=== PATIENT | male | born 1955 | race Caucasian/White ===

== ENCOUNTER 2020-04-20 11:50 | Inpatient (IN) | payer MEDICARE, OTHER ==
[~2020-04-20] VITALS: Ht 177.8 cm; Wt 104.3 kg
[2020-04-20 11:44] VITALS: BP 140/99
--- NOTE | 2020-04-20 11:51 | NUR ---
ED Nurse Note: pt. brought in by ra Gill from the [facility]. per pt. he cannot walk and per pt. he has pain on his muscles when he tries to walk. pt. is aaox4. no s/ s of resp distress noted at this time
--- NOTE | 2020-04-20 12:07 | Emergency Room Report ---
History of Present Illness General Chief Complaint: Pain Source: Patient (Ced Hsu MD) Present Illness HPI Disclaimer: Please note that this report is being documented using [employer] technology. This can lead to erroneous entry secondary to incorrect interpretation by the dictating instrument. HPI: 64-year-old male with a history of seizure disorder on Keppra, hypertension, CHF presents for evaluation of fatigue and myalgias. Patient arrives by EMS. Called when bystander found him sleeping on the floor. He was complaining of pain in his arms and legs. Describes it as soreness. Nonradiating. Denies chest pain, palpitations. Denies cough. Reports mild shortness of breath. Denies fever, chills. Reports nasal congestion but denies sore throat, headaches, nausea, vomiting or diarrhea. States he is compliant with his furosemide, Keppra. Receives his care at the [facility]. No testing for COVID-19. Denies sick contacts. Symptoms began this morning and went to bed in his usual state of health. Denies recent seizures. Also reports history of hypokalemia for which he takes potassium supplements. States he has been compliant with his medication regimen. PMH: Seizure disorder, CHF, brain cancer in remission PSH: Denied Allergies: Denied Social Hx: Current smoker, occasional alcohol use (Ced Hsu MD) Allergies: Coded Allergies: No Known Allergies (Unverified , 04/20/20) COVID-19 Screening Contact w/high risk pt: No Experienced COVID-19 symptoms?: No COVID-19 Testing performed PHARMACEUTICAL SALES: No (Ced Hsu MD) Nursing Documentation-PMH Hx Cancer: Yes - BRAIN CA (Ced Hsu MD) Review of Systems All Other Systems: negative except mentioned in HPI (Ced Hsu MD) Physical Exam Vital Signs Date Time Temp Pulse Resp B/P (MAP) Pulse Ox O2 Delivery O2 Flow Rate FiO2 04/20/20 11:44 98.4 04/20/20 11:44 99 18 140/99 98 Room Air General: Awake and alert, no acute distress, appears fatigued HEENT: NC/AT. EOMI. nasal congestion. No pharyngeal edema or exudate. Cardiovascular: RRR. S1 and S2 normal. No murmur appreciated Resp: Normal work of breathing. No cough, wheezing or crackles appreciated Abdomen: Abdomen is soft, nondistended. Nontender Skin: Intact. No abrasions, laceration or rash over the exposed skin. Bruise over the left chest. Nontender. MSK: Normal tone and bulk. Moving all extremities. No obvious deformity. Neuro: Awake and alert. Mentating appropriately. Mildly tremulous. (Ced Hsu MD) Medical Decision Making Diagnostic Impression: Primary Impression: Myalgia Additional Impressions: Rhabdomyolysis Lung mass ER Course 64-year-old male presents for evaluation of myalgias and fatigue. Differential includes not limited to viral syndrome, COVID-19 infection, dehydration, electrolyte abnormality, renal insufficiency, myositis, rhabdo myelitis among others. EKG nonischemic. Chest x-ray shows no infiltrate. Radiology concern for right upper lobe mass. Labs show elevated CK, creatinine and BUN consistent with acute renal injury and mild myositis/rhabdo myelitis. Likely secondary to viral syndrome. Patient denies other symptoms at this time aside from fatigue and muscle aches. Continuing IV fluids. Urinalysis pending. Will arrange for admission. Laboratory Tests Test 04/20/20 12:00 White Blood Count 10.6 K/UL (4.8-10.8) Red Blood Count 5.02 M/UL (4.70-6.10) Hemoglobin 15.7 G/DL (14.2-18.0) Hematocrit 45.6 % (42.0-52.0) Mean Corpuscular Volume 91 FL (80-99) Mean Corpuscular Hemoglobin 31.2 PG (27.0-31.0) H Mean Corpuscular Hemoglobin Concent 34.4 G/DL (32.0-36.0) Red Cell Distribution Width 12.1 % (11.6-14.8) Platelet Count 218 K/UL (150-450) Mean Platelet Volume 9.3 FL (6.5-10.1) Neutrophils (%) (Auto) 77.6 % (45.0-75.0) H Lymphocytes (%) (Auto) 8.3 % (20.0-45.0) L Monocytes (%) (Auto) 9.3 % (1.0-10.0) Eosinophils (%) (Auto) 2.5 % (0.0-3.0) Basophils (%) (Auto) 2.3 % (0.0-2.0) H Sodium Level 134 MMOL/L (136-145) L Potassium Level 3.7 MMOL/L (3.5-5.1) Chloride Level 94 MMOL/L (98-107) L Carbon Dioxide Level 29 MMOL/L (21-32) Anion Gap 11 mmol/L (5-15) Blood Urea Nitrogen 58 mg/dL (7-18) H Creatinine 1.6 MG/DL (0.55-1.30) H Estimated Glomerular Filtration Rate 43.7 mL/min (>60) Glucose Level 110 MG/DL (74-106) H Calcium Level 9.5 MG/DL (8.5-10.1) Total Bilirubin 1.0 MG/DL (0.2-1.0) Aspartate Amino Transferase (AST) 131 U/L (15-37) H Alanine Aminotransferase (ALT) 68 U/L (12-78) Alkaline Phosphatase 102 U/L (46-116) Total Creatine Kinase 1762 U/L (26-308) H Troponin I 0.000 ng/mL (0.000-0.056) Pro-B-Type Natriuretic Peptide Pending Total Protein 7.9 G/DL (6.4-8.2) Albumin 3.1 G/DL (3.4-5.0) L Globulin 4.8 g/dL Albumin/Globulin Ratio 0.6 (1.0-2.7) L Serum Alcohol < 3 mg/dL (Ced Hsu MD) ER Course Patient was endorsed to me by Dr. Hsu. See Dr. Hsu's notes for full history and physical. Previous laboratory testing showed some rhabdomyolysis. Chest x-ray read by radiology showed lung lesion. Patient was discussed with who agreed with admission. Labs Test 04/20/20 12:00 04/20/20 16:00 White Blood Count 10.6 K/UL (4.8-10.8) Red Blood Count 5.02 M/UL (4.70-6.10) Hemoglobin 15.7 G/DL (14.2-18.0) Hematocrit 45.6 % (42.0-52.0) Mean Corpuscular Volume 91 FL (80-99) Mean Corpuscular Hemoglobin 31.2 PG (27.0-31.0) Mean Corpuscular Hemoglobin Concent 34.4 G/DL (32.0-36.0) Red Cell Distribution Width 12.1 % (11.6-14.8) Platelet Count 218 K/UL (150-450) Mean Platelet Volume 9.3 FL (6.5-10.1) Neutrophils (%) (Auto) 77.6 % (45.0-75.0) Lymphocytes (%) (Auto) 8.3 % (20.0-45.0) Monocytes (%) (Auto) 9.3 % (1.0-10.0) Eosinophils (%) (Auto) 2.5 % (0.0-3.0) Basophils (%) (Auto) 2.3 % (0.0-2.0) Sodium Level 134 MMOL/L (136-145) Potassium Level 3.7 MMOL/L (3.5-5.1) Chloride Level 94 MMOL/L (98-107) Carbon Dioxide Level 29 MMOL/L (21-32) Anion Gap 11 mmol/L (5-15) Blood Urea Nitrogen 58 mg/dL (7-18) Creatinine 1.6 MG/DL (0.55-1.30) Estimat Glomerular Filtration Rate 43.7 mL/min (>60) Glucose Level 110 MG/DL (74-106) Calcium Level 9.5 MG/DL (8.5-10.1) Total Bilirubin 1.0 MG/DL (0.2-1.0) Aspartate Amino Transf (AST/SGOT) 131 U/L (15-37) Alanine Aminotransferase (ALT/SGPT) 68 U/L (12-78) Alkaline Phosphatase 102 U/L (46-116) Total Creatine Kinase 1762 U/L (26-308) Troponin I 0.000 ng/mL (0.000-0.056) Total Protein 7.9 G/DL (6.4-8.2) Albumin 3.1 G/DL (3.4-5.0) Globulin 4.8 g/dL Albumin/Globulin Ratio 0.6 (1.0-2.7) Serum Alcohol < 3 mg/dL Urine Color Yellow Urine Appearance Slightly cloudy Urine pH 5 (4.5-8.0) Urine Specific [place] 1.015 (1.005-1.035) Urine Protein 1+ (NEGATIVE) Urine Glucose (UA) Negative (NEGATIVE) Urine Ketones 2+ (NEGATIVE) Urine Blood 2+ (NEGATIVE) Urine Nitrite Negative (NEGATIVE) Urine Bilirubin Negative (NEGATIVE) Urine Urobilinogen Normal MG/DL (0.0-1.0) Urine Leukocyte Esterase 1+ (NEGATIVE) Urine Opiates Screen Negative (NEGATIVE) Urine Barbiturates Screen Negative (NEGATIVE) Phencyclidine (PCP) Screen Negative (NEGATIVE) Urine Amphetamines Screen Negative (NEGATIVE) Urine Benzodiazepines Screen Negative (NEGATIVE) Urine Cocaine Screen Negative (NEGATIVE) Urine Marijuana (THC) Screen Positive (NEGATIVE) (Bubba Villanueva MD) EKG Diagnostic Results Troponin ordered: Yes When was troponin ordered?: Apr 20, 2020 EKG Time: 12:41 Rate: normal Rhythm: NSR ST Segments: no acute changes Other Impression Sinus rhythm, normal axis, normal intervals, QTC 462 ms, no ST segment changes. No T wave abnormalities. (Ced Hsu MD) Rhythm Strip Diag. Results Rhythm Strip Time: 12:41 EP Interpretation: yes Rate: 90s Rhythm: NSR, no PVC's, no ectopy (Ced Hsu MD) Chest X-Ray Diagnostic Results Chest X-Ray Diagnostic Results : Chest X-Ray Ordered: Yes # of Views/Limited/Complete: 1 View Indication: Other - Weakness EP Interpretation: Yes Interpretation: no consolidation, no effusion, no pneumothorax, no acute cardiopulmonary disease, other - Right upper lobe mass Impression: Other - No infiltrate. Right upper lobe mass Electronically Signed by: Electronically signed by Dr. Ced Hsu MD (Ced Hsu MD) Last Vital Signs Date Time Temp Pulse Resp B/P (MAP) Pulse Ox O2 Delivery O2 Flow Rate FiO2 04/20/20 11:44 98.4 99 18 140/99 (113) 98 Room Air (Ced Hsu MD) Disposition: ADMITTED INPATIENT Condition: Serious Scripts No Active Prescriptions or Reported Meds Ced Hsu MD Apr 20, 2020 12:07 Bubba Villanueva MD Apr 20, 2020 17:14
[2020-04-20 13:02] LABS: BASOPHILS % (AUTO) 2.3 % (0.0-2.0); EOSINOPHILS % (AUTO) 2.5 % (0.0-3.0); HEMATOCRIT 45.6 % (42.0-52.0); HEMOGLOBIN 15.7 G/DL (14.2-18.0); LYMPHOCYTES % (AUTO) 8.3 % (20.0-45.0); MEAN CORPUSCULAR VOLUME 91 FL (80-99); MONOCYTES % (AUTO) 9.3 % (1.0-10.0); NEUTROPHILS % (AUTO) 77.6 % (45.0-75.0); PLATELET COUNT 218 K/UL (150-450); RED BLOOD COUNT 5.02 M/UL (4.70-6.10); RED CELL DISTRIBUTION WIDTH 12.1 % (11.6-14.8); WHITE BLOOD COUNT 10.6 K/UL (4.8-10.8)
[2020-04-20 13:16] LABS: ANION GAP 11 mmol/L (5-15); BLOOD UREA NITROGEN 58 mg/dL (7-18); CALCIUM 9.5 MG/DL (8.5-10.1); CARBON DIOXIDE 29 MMOL/L (21-32); CHLORIDE 94 MMOL/L (98-107); CREATININE 1.6 MG/DL (0.55-1.30); POTASSIUM 3.7 MMOL/L (3.5-5.1); SODIUM 134 MMOL/L (136-145)
[2020-04-20 13:30] LABS: ALANINE AMINOTRANSFERASE 68 U/L (12-78); ALBUMIN 3.1 G/DL (3.4-5.0); ALBUMIN/GLOBULIN RATIO 0.6 (1.0-2.7); ALKALINE PHOSPHATASE 102 U/L (46-116); ASPARTATE AMINO TRANSFERASE 131 U/L (15-37); CREATINE KINASE 1762 U/L (26-308)
--- NOTE | 2020-04-20 13:46 | NUR ---
ED Nurse Note:blood sent to labs, he was not able to produce urine
[2020-04-20 14:21] VITALS: BP 138/89
[2020-04-20 16:51] LABS: BILIRUBIN, URINE NEGATIVE (NEGATIVE); GLUCOSE, URINE (UA) NEGATIVE (NEGATIVE); KETONES,URINE 2+ (NEGATIVE); LEUKOCYTE ESTERASE ,URINE 1+ (NEGATIVE); NITRITE,URINE NEGATIVE (NEGATIVE); PH,URINE 5 (4.5-8.0); PROTEIN,URINE 1+ (NEGATIVE); UROBILINOGEN,URINE NORMAL MG/DL (0.0-1.0)
[2020-04-20 16:54] LABS: APPEARANCE,URINE SLIGHTLY CLOUDY; COLOR,URINE YELLOW
--- NOTE | 2020-04-20 17:20 | Diagnostic Imaging Report ---
. Indication: Shortness of breath Technique: One view of the chest Comparison: none Findings: There is a 3.9 cm mass in the periphery of the right upper lobe. The lungs and pleural spaces are otherwise clear. The heart size is normal. Impression: Positive for 3.9 cm right upper lobe lung mass. This is concerning for neoplasm. Further evaluation with CT scan should be considered if this has not been worked up previously. This finding was reported to Dr. Villanueva in the emergency room at the time of interpretation Otherwise no acute process
--- NOTE | 2020-04-20 19:02 | NUR ---
ED Nurse Note:called report to [facility]- given to Ritika flores RN
--- NOTE | 2020-04-20 19:05 | NUR ---
NURSE NOTES: Received report from Ritika RAMON. Pt will be up from ER shortly.
[2020-04-20 19:15] VITALS: BP 137/63
--- NOTE | 2020-04-20 19:15 | NUR ---
NURSE NOTES: Received pt from ER. Pt is stable, no complaints of pain, urinal within. Bed locked in lowest position, side rails up x2, call light within reach. Pt states that they cannot ambulate, pt is on fall precautions, told pt to use the call light when they need anything.
--- NOTE | 2020-04-20 19:48 | History & Physical ---
History and Physical History & Physicial 64-year-old male with a history of seizure disorder presents for evaluation of fatigue and myalgias. Patient with pain and soreness in his arms and legs. Denies chest pain, palpitations. Denies cough. He notes mild shortness of breath. Denies fever, chills. He usually receives his care at the [place]. States he has been compliant with his medication regimen. noted to have a lung mass on CXR PMH: Seizure disorder, CHF, brain cancer in remission, hypertension PSH: Denied Allergies: Denied Meds; noted Physical WDWN NAD clear breath sounds bilaterally without rhonchi or wheeze [id number] without MRG NABS nontender no HSM no CC noted edema nonfocal Laboratory Tests 04/20/20 12:00: White Blood Count 10.6, Red Blood Count 5.02, Hemoglobin 15.7, Hematocrit 45.6, Mean Corpuscular Volume 91, Mean Corpuscular Hemoglobin 31.2H, Mean Corpuscular Hemoglobin Concent 34.4, Red Cell Distribution Width 12.1, Platelet Count 218, Mean Platelet Volume 9.3, Neutrophils (%) (Auto) 77.6H, Lymphocytes (%) (Auto) 8.3L, Monocytes (%) (Auto) 9.3, Eosinophils (%) (Auto) 2.5, Basophils (%) (Auto) 2.3H, Sodium Level 134L, Potassium Level 3.7, Chloride Level 94L, Carbon Dioxide Level 29, Anion Gap 11, Blood Urea Nitrogen 58H, Creatinine 1.6H, Estimat Glomerular Filtration Rate 43.7, Glucose Level 110H, Calcium Level 9.5, Total Bilirubin 1.0, Aspartate Amino Transf (AST/SGOT) 131H, Alanine Aminotransferase (ALT/SGPT) 68, Alkaline Phosphatase 102, Total Creatine Kinase 1762H, Troponin I 0.000, Pro-B-Type Natriuretic Peptide [Pending], Total Protein 7.9, Albumin 3.1L , Globulin 4.8, Albumin/Globulin Ratio 0.6L, Serum Alcohol < 3 04/20/20 16:00: Urine Color Yellow, Urine Appearance Slightly cloudy, Urine pH 5, Urine Specific [place] 1.015, Urine Protein 1+H, Urine Glucose (UA) Negative, Urine Ketones 2+H, Urine Blood 2+H, Urine Nitrite Negative, Urine Bilirubin Negative, Urine Urobilinogen Normal, Urine Leukocyte Esterase 1+H, Urine RBC 2-4H, Urine WBC 2- 4, Urine Squamous Epithelial Cells None, Urine Bacteria Few, Urine Opiates Screen Negative, Urine Barbiturates Screen Negative, Phencyclidine (PCP) Screen Negative, Urine Amphetamines Screen Negative, Urine Benzodiazepines Screen Negative, Urine Cocaine Screen Negative, Urine Marijuana (THC) Screen PositiveH IMPRESSION lung mass leg edema seizure disorder fatigue/malaise hypertension acute renal failure COPD elevated CK PLAN onc renal eval renal US respiratory care IV hydration resume meds impression, plan, and exam edited and reviewed in detail care discussed with Robert mAado MD Apr 20, 2020 19:48
--- NOTE | 2020-04-20 21:20 | NUR ---
NURSE NOTES: Received admission orders from , entered and carried out orders.
[2020-04-20 23:46] VITALS: BP 133/69
[2020-04-21 04:00] VITALS: BP 122/63
[2020-04-21 06:31] LABS: BASOPHILS % (AUTO) 1.3 % (0.0-2.0); EOSINOPHILS % (AUTO) 4.1 % (0.0-3.0); HEMATOCRIT 36.8 % (42.0-52.0); HEMOGLOBIN 12.9 G/DL (14.2-18.0); LYMPHOCYTES % (AUTO) 9.5 % (20.0-45.0); MEAN CORPUSCULAR VOLUME 89 FL (80-99); MONOCYTES % (AUTO) 9.1 % (1.0-10.0); PLATELET COUNT 195 K/UL (150-450); RED BLOOD COUNT 4.11 M/UL (4.70-6.10); RED CELL DISTRIBUTION WIDTH 12.6 % (11.6-14.8); WHITE BLOOD COUNT 7.5 K/UL (4.8-10.8)
[2020-04-21 06:43] LABS: ANION GAP 6 mmol/L (5-15); CALCIUM 8.3 MG/DL (8.5-10.1); CARBON DIOXIDE 27 MMOL/L (21-32); CHLORIDE 102 MMOL/L (98-107); CREATINE KINASE 855 U/L (26-308); POTASSIUM 3.4 MMOL/L (3.5-5.1); SODIUM 135 MMOL/L (136-145)
--- NOTE | 2020-04-21 06:46 | Consultation ---
History of Present Illness General Chief Complaint: Pain Present Illness Allergies: Coded Allergies: No Known Allergies (Unverified , 04/20/20) Medication History No Active Prescriptions or Reported Meds Patient History Healthcare decision maker Resuscitation status Advanced Directive on File Physical Exam Last 24 Hour Vital Signs Date Time Temp Pulse Resp B/P (MAP) Pulse Ox O2 Delivery O2 Flow Rate FiO2 04/21/20 04:00 97.9 84 20 122/63 (82) 93 04/20/20 23:46 98.1 74 20 133/69 (90) 96 04/20/20 21:36 Room Air 04/20/20 19:15 97.7 69 21 137/63 (87) 96 04/20/20 19:01 98.4 93 16 138/89 98 Room Air 04/20/20 14:21 98.4 93 16 138/89 98 Room Air 04/20/20 11:44 98.4 99 18 140/99 (113) 98 Room Air 04/20/20 11:44 98.4 99 18 140/99 98 Room Air 04/20/20 11:44 98.4 Intake and Output 04/20/20 04/21/20 19:00 07:00 Intake Total 860 ml Output Total 0 ml Balance 0 ml 860 ml Intake Oral 360 ml IV Total 500 ml Output Urine Total 0 ml # Voids 4 # Bowel Movements 1 Laboratory Tests Test 04/20/20 12:00 04/20/20 16:00 04/21/20 06:00 White Blood Count 10.6 K/UL (4.8-10.8) 7.5 K/UL (4.8-10.8) Red Blood Count 5.02 M/UL (4.70-6.10) 4.11 M/UL (4.70-6.10) L Hemoglobin 15.7 G/DL (14.2-18.0) 12.9 G/DL (14.2-18.0) L Hematocrit 45.6 % (42.0-52.0) 36.8 % (42.0-52.0) L Mean Corpuscular Volume 91 FL (80-99) 89 FL (80-99) Mean Corpuscular Hemoglobin 31.2 PG (27.0-31.0) H 31.4 PG (27.0-31.0) H Mean Corpuscular Hemoglobin Concent 34.4 G/DL (32.0-36.0) 35.1 G/DL (32.0-36.0) Red Cell Distribution Width 12.1 % (11.6-14.8) 12.6 % (11.6-14.8) Platelet Count 218 K/UL (150-450) 195 K/UL (150-450) Mean Platelet Volume 9.3 FL (6.5-10.1) 10.0 FL (6.5-10.1) Neutrophils (%) (Auto) 77.6 % (45.0-75.0) H 76.0 % (45.0-75.0) H Lymphocytes (%) (Auto) 8.3 % (20.0-45.0) L 9.5 % (20.0-45.0) L Monocytes (%) (Auto) 9.3 % (1.0-10.0) 9.1 % (1.0-10.0) Eosinophils (%) (Auto) 2.5 % (0.0-3.0) 4.1 % (0.0-3.0) H Basophils (%) (Auto) 2.3 % (0.0-2.0) H 1.3 % (0.0-2.0) Sodium Level 134 MMOL/L (136-145) L Pending Potassium Level 3.7 MMOL/L (3.5-5.1) Pending Chloride Level 94 MMOL/L (98-107) L Pending Carbon Dioxide Level 29 MMOL/L (21-32) Pending Anion Gap 11 mmol/L (5-15) Blood Urea Nitrogen 58 mg/dL (7-18) H Pending Creatinine 1.6 MG/DL (0.55-1.30) H Pending Estimat Glomerular Filtration Rate 43.7 mL/min (>60) Pending Glucose Level 110 MG/DL (74-106) H Pending Calcium Level 9.5 MG/DL (8.5-10.1) Pending Total Bilirubin 1.0 MG/DL (0.2-1.0) Aspartate Amino Transf (AST/SGOT) 131 U/L (15-37) H Alanine Aminotransferase (ALT/SGPT) 68 U/L (12-78) Alkaline Phosphatase 102 U/L (46-116) Total Creatine Kinase 1762 U/L (26-308) H Pending Troponin I 0.000 ng/mL (0.000-0.056) Pro-B-Type Natriuretic Peptide Pending Total Protein 7.9 G/DL (6.4-8.2) Albumin 3.1 G/DL (3.4-5.0) L Globulin 4.8 g/dL Albumin/Globulin Ratio 0.6 (1.0-2.7) L Serum Alcohol < 3 mg/dL Urine Color Yellow Urine Appearance Slightly cloudy Urine pH 5 (4.5-8.0) Urine Specific [place] 1.015 (1.005-1.035) Urine Protein 1+ (NEGATIVE) H Urine Glucose (UA) Negative (NEGATIVE) Urine Ketones 2+ (NEGATIVE) H Urine Blood 2+ (NEGATIVE) H Urine Nitrite Negative (NEGATIVE) Urine Bilirubin Negative (NEGATIVE) Urine Urobilinogen Normal MG/DL (0.0-1.0) Urine Leukocyte Esterase 1+ (NEGATIVE) H Urine RBC 2-4 /HPF (0 - 0) H Urine WBC 2-4 /HPF (0 - 0) Urine Squamous Epithelial Cells None /LPF (NONE/OCC) Urine Bacteria Few /HPF (NONE) Urine Opiates Screen Negative (NEGATIVE) Urine Barbiturates Screen Negative (NEGATIVE) Phencyclidine (PCP) Screen Negative (NEGATIVE) Urine Amphetamines Screen Negative (NEGATIVE) Urine Benzodiazepines Screen Negative (NEGATIVE) Urine Cocaine Screen Negative (NEGATIVE) Urine Marijuana (THC) Screen Positive (NEGATIVE) H Height (Feet): 5 Height (Inches): 10.00 Weight (Pounds): 230 Medications Current Medications Medications (Trade) Dose Ordered Sig/Dao Route PRN Reason Start Time Stop Time Status Last Admin Dose Admin Acetaminophen (Tylenol) 650 mg Q4H PRN ORAL MILD Pain(1-3) & fever>101.4 04/20/20 21:30 05/20/20 21:29 Al Hydroxide/Mg Hydroxide (Mylanta) 30 ml Q4HR PRN ORAL GERD 04/20/20 21:30 05/20/20 21:29 Heparin Sodium (Porcine) (Heparin 5000 units/ml) 5,000 units EVERY 12 HOURS SUBQ 04/21/20 09:00 06/05/20 08:59 Pantoprazole (Protonix) 40 mg DAILY ORAL 04/21/20 09:00 05/21/20 08:59 Sodium Chloride 1,000 ml @ 100 mls/hr Q10H IV 04/20/20 21:30 05/20/20 21:29 04/20/20 22:37 Assessment/Plan Assessment/Plan: Oncology Consultation REQ MD: Robert Leyva RFC: Lung mass DOS: 04/21/20 ID 64-year-old male with a history of seizure disorder presents for evaluation of fatigue and myalgias. Patient with pain and soreness in his arms and legs. Denies chest pain, palpitations. Denies cough. He notes mild shortness of breath. Denies fever, chills. He usually receives his care at the [place]. States he has been compliant with his medication regimen. noted to have a lung mass on CXR PMH: Seizure disorder, CHF, brain cancer in remission, hypertension PSH: Denied Allergies: Denied Meds; noted ROS neg except as per above Physical WDWN NAD clear breath sounds bilaterally without rhonchi or wheeze [id number] without MRG NABS nontender no HSM no CC noted edema nonfocal Laboratory Tests 04/20/20 12:00: White Blood Count 10.6, Red Blood Count 5.02, Hemoglobin 15.7, Hematocrit 45.6, Mean Corpuscular Volume 91, Mean Corpuscular Hemoglobin 31.2H, Mean Corpuscular Hemoglobin Concent 34.4, Red Cell Distribution Width 12.1, Platelet Count 218, Mean Platelet Volume 9.3, Neutrophils (%) (Auto) 77.6H, Lymphocytes (%) (Auto) 8.3L, Monocytes (%) (Auto) 9.3, Eosinophils (%) (Auto) 2.5, Basophils (%) (Auto) 2.3H, Sodium Level 134L, Potassium Level 3.7, Chloride Level 94L, Carbon Dioxide Level 29, Anion Gap 11, Blood Urea Nitrogen 58H, Creatinine 1.6H, Estimat Glomerular Filtration Rate 43.7, Glucose Level 110H, Calcium Level 9.5, Total Bilirubin 1.0, Aspartate Amino Transf (AST/SGOT) 131H, Alanine Aminotransferase (ALT/SGPT) 68, Alkaline Phosphatase 102, Total Creatine Kinase 1762H, Troponin I 0.000, Pro-B-Type Natriuretic Peptide [Pending], Total Protein 7.9, Albumin 3.1L, Globulin 4.8, Albumin/Globulin Ratio 0.6L, Serum Alcohol < 3 04/20/20 16:00: Urine Color Yellow, Urine Appearance Slightly cloudy, Urine pH 5, Urine Specific [place] 1.015, Urine Protein 1+H, Urine Glucose (UA) Negative, Urine Ketones 2+H, Urine Blood 2+H, Urine Nitrite Negative, Urine Bilirubin Negative, Urine Urobilinogen Normal, Urine Leukocyte Esterase 1+H, Urine RBC 2-4H, Urine WBC 2- 4, Urine Squamous Epithelial Cells None, Urine Bacteria Few, Urine Opiates Screen Negative, Urine Barbiturates Screen Negative, Phencyclidine (PCP) Screen Negative, Urine Amphetamines Screen Negative, Urine Benzodiazepines Screen Negative, Urine Cocaine Screen Negative, Urine Marijuana (THC) Screen PositiveH IMPRESSION # Lung mass on cxr .9 cm right upper lobe lung mass. This is concerning for neoplasm. --> does have a extensive hx of smoking --> Ct of the chest has been ordered today --> consider a biopsy if mass noted on ct # Anemia of chronic disease --> hgb 12 --> no e/o gi bleed # Leg edema --> r/o chf # Seizure disorder # Fatigue/malaise # Hypertension # Acute renal failure # COPD # elevated CK Appreciate consultation and dw Zeb Lepe MD Apr 21, 2020 06:46
--- NOTE | 2020-04-21 07:25 | NUR ---
NURSE HAND-OFF: Important Events on Shift: MRSA, VRE, CRE, swabbed. Patient Status: stable Diet: regular Pending Orders: renal ultrasound, CT scan Pending Results/Labs: Pending MD notification: Latest Vital Signs: Temperature 97.9 , Pulse 84 , B/P 122 /63 , Respiratory Rate 20 , O2 SAT 93 , Room Air, O2 Flow Rate . Vital Sign Comment: VSS Latest Leger Fall Score: 35 Fall Risk: Medium Risk Safety Measures: Call light Within Reach, Bed Alarm Zone 1, Side Rails Side Rails x2, Bed position Low and Locked. Fall Precautions: Yellow Socks Patient Fall Education Report given to TRISTEN Spencer.
[2020-04-21 07:48] LABS: BLOOD UREA NITROGEN 30 mg/dL (7-18)
[2020-04-21 08:00] VITALS: BP 127/58
--- NOTE | 2020-04-21 08:00 | NUR ---
NURSE NOTES: Received report from Zoya RN, pt a/a/o laying in bed with no signs of distress or other issues at this time. per report pt started coughing with productive sputum noted. per report COVID test ordered by Dr. Ansari. IV on the left AC gauge#20 running NS @100ml/hr. call light within reach, bed in lowest position, side rales up x2. I will f/u as needed. plan: COVID test, CT chest, US renal.
[2020-04-21] MEDS: Heparin 5000 units/ml inj SUBQ SCH ×2 (09:50→20:21)
--- NOTE | 2020-04-21 11:35 | NUR ---
MATHEMATICS INSTRUCTOR NOTE SW met w/ pt and completed the psychosocial assessment. Pt presents as A&O4x. PT has been homeless for 2 years. Pt is single, never and has no children. Pt receives disability income and pension Appx$2500/mo. Pt reports having some income left for this month. Pt served [employer] for 4 years. PT denies ETOH/substance use, but admits tobacco use. UDS positive for THC. PT declined counseling/tx intervention on substance abuse. Pt denies having mental illness. Pt reports he is not [facility] to any [facility]. PT did not use any DME prior to admission. PT Evaluation recommended as pt reports he is not able to walk for a few days and potentially in need of DME. This SW will discuss dc planning depending on his mobility: [employer] vs board and care vs SNF? Emergency contact: Tenzin Dhruv (brother) [phone] Emergency ONLY
[2020-04-21 12:00] VITALS: BP 121/64
--- NOTE | 2020-04-21 12:21 | General Progress Note ---
Subjective Allergies: Coded Allergies: No Known Allergies (Unverified , 04/20/20) Subjective no distress heme noted Objective Last 24 Hour Vital Signs Date Time Temp Pulse Resp B/P (MAP) Pulse Ox O2 Delivery O2 Flow Rate FiO2 04/21/20 09:00 Room Air 04/21/20 08:00 98.0 78 18 127/58 (81) 93 04/21/20 04:00 97.9 84 20 122/63 (82) 93 04/20/20 23:46 98.1 74 20 133/69 (90) 96 04/20/20 21:36 Room Air 04/20/20 19:15 97.7 69 21 137/63 (87) 96 04/20/20 19:01 98.4 93 16 138/89 98 Room Air 04/20/20 14:21 98.4 93 16 138/89 98 Room Air Intake and Output 04/20/20 04/21/20 19:00 07:00 Intake Total 1160 ml Output Total 0 ml Balance 0 ml 1160 ml Intake Oral 360 ml IV Total 800 ml Output Urine Total 0 ml # Voids 4 # Bowel Movements 1 Laboratory Tests 04/20/20 16:00: Urine Color Yellow, Urine Appearance Slightly cloudy, Urine pH 5, Urine Specific [place] 1.015, Urine Protein 1+H, Urine Glucose (UA) Negative, Urine Ketones 2+H , Urine Blood 2+H, Urine Nitrite Negative, Urine Bilirubin Negative, Urine Urobilinogen Normal, Urine Leukocyte Esterase 1+H, Urine RBC 2-4H, Urine WBC 2- 4, Urine Squamous Epithelial Cells None, Urine Bacteria Few, Urine Opiates Screen Negative, Urine Barbiturates Screen Negative, Phencyclidine (PCP) Screen Negative, Urine Amphetamines Screen Negative, Urine Benzodiazepines Screen Negative, Urine Cocaine Screen Negative, Urine Marijuana (THC) Screen PositiveH 04/21/20 06:00: White Blood Count 7.5, Red Blood Count 4.11L, Hemoglobin 12.9L, Hematocrit 36.8L , Mean Corpuscular Volume 89, Mean Corpuscular Hemoglobin 31.4H, Mean Corpuscular Hemoglobin Concent 35.1, Red Cell Distribution Width 12.6, Platelet Count 195, Mean Platelet Volume 10.0, Neutrophils (%) (Auto) 76.0H, Lymphocytes (%) (Auto) 9.5L, Monocytes (%) (Auto) 9.1, Eosinophils (%) (Auto) 4.1H, Basophils (%) (Auto) 1.3, Sodium Level 135L, Potassium Level 3.4L, Chloride Level 102, Carbon Dioxide Level 27, Anion Gap 6, Blood Urea Nitrogen 30H, Creatinine 1.0, Estimat Glomerular Filtration Rate > 60, Glucose Level 159H, Calcium Level 8.3L, Total Creatine Kinase 855H, Carcinoembryonic Antigen [Pending], CA 19-9 Antigen [Pending] Height (Feet): 5 Height (Inches): 10.00 Weight (Pounds): 230 Objective WDWN NAD clear breath sounds bilaterally without rhonchi or wheeze [id number] without MRG NABS nontender no HSM no CCE nonfocal Assessment/Plan Assessment/Plan: IMPRESSION lung mass leg edema seizure disorder fatigue/malaise hypertension acute renal failure COPD elevated CK PLAN onc noted await CT chest renal eval renal US respiratory care IV hydration with improved parameters resume meds PT impression, plan, and exam edited and reviewed in detail care discussed with Robert Amado MD Apr 21, 2020 12:21
--- NOTE | 2020-04-21 13:43 | Consultation ---
History of Present Illness General Date patient seen: Apr 21, 2020 Reason for Hospitalization: Pain Present Illness HPI This is a very pleasant 64-year-old male with a history of seizure disorder on Keppra, hypertension, CHF presents for evaluation of fatigue and myalgias. Patient arrives by EMS. Called when bystander found him sleeping on the floor. He was complaining of pain in his arms and legs. Describes it as soreness. Nonradiating. Denies chest pain, palpitations. Denies cough. Reports mild shortness of breath. Denies fever, chills. Reports nasal congestion but denies sore throat, headaches, nausea, vomiting or diarrhea. States he is compliant with his furosemide, Keppra. Receives his care at the [place]. on admission identified to have multiple sores and skin abrasions and bruising to his abdomen pelvis pubic and penis. Surgery called to eval assist with care. Patient seen, patient evaluate, chart reviewed. Patient states he does urinate on cell phone on his clothing at times and has noted that he is blistering and wounds for some time now but has not seek care. There are open wounds and blisters identified throughout his pelvis and groin region. Otherwise states he is well. States right now he cannot move. States significant decrease in range of motion his lower extremities. Allergies: Coded Allergies: No Known Allergies (Unverified , 04/20/20) COVID-19 Screening Contact w/high risk pt: No Experienced COVID-19 symptoms?: No Medication History No Active Prescriptions or Reported Meds Patient History History Provided By: Patient, Medical Record, PMD Healthcare decision maker Resuscitation status Advanced Directive on File Past Medical/Surgical History Past Medical/Surgical History: (1) Bruising of penis (2) Rhabdomyolysis (3) Lung mass (4) Myalgia (5) Myositis (6) AXEL (acute kidney injury) (7) Pain Review of Systems Review of Symptoms General ROS: no weight loss or fever Psychological ROS: no depression or mood changes, no memory loss Ophthalmic ROS: no visual changes or eye irritation ENT ROS: no nasal congestion, hearing loss, dizziness Allergy and Immunology ROS: no allergic symptoms or urticaria Hematological and Lymphatic ROS: no swollen glands, unusual bleeding or bruising Endocrine ROS: no polyuria, polydipsia, weight changes, temperature intolerance Respiratory ROS: no cough, shortness of breath, or wheezing Cardiovascular ROS: no chest pain or dyspnea on exertion Gastrointestinal ROS: denies abdominal pain, bright red blood in stool. Musculoskeletal ROS: no myalgias or arthralgias Neurological ROS: no TIA or stroke symptoms Dermatological ROS: no new or changing skin lesions, rashes or pruritis Physical Exam Physical Exam General appearance: alert, cooperative, no distress, appears stated age Head: Normocephalic, without obvious abnormality, atraumatic Eyes: conjunctivae/corneas clear. PERRL, EOM's intact. Fundi benign Throat: Lips, mucosa, and tongue normal. Teeth and gums normal Neck: supple, symmetrical, trachea midline, no adenopathy, thyroid: not enlarged, symmetric, no tenderness/mass/nodules, no carotid bruit and no JVD Lungs: clear to auscultation bilaterally Heart: regular rate and rhythm, S1, S2 normal, no murmur, click, rub or gallop Abdomen: soft, non-tender. Bowel sounds normal. No masses, no organomegaly Extremities: extremities normal, atraumatic, no cyanosis or edema Pulses: 2+ and symmetric Skin: Skin see below Neurologic: Grossly normal Last 24 Hour Vital Signs Date Time Temp Pulse Resp B/P (MAP) Pulse Ox O2 Delivery O2 Flow Rate FiO2 04/21/20 12:00 98.2 96 18 121/64 (83) 94 04/21/20 09:00 Room Air 04/21/20 08:00 98.0 78 18 127/58 (81) 93 04/21/20 04:00 97.9 84 20 122/63 (82) 93 04/20/20 23:46 98.1 74 20 133/69 (90) 96 04/20/20 21:36 Room Air 04/20/20 19:15 97.7 69 21 137/63 (87) 96 04/20/20 19:01 98.4 93 16 138/89 98 Room Air 04/20/20 14:21 98.4 93 16 138/89 98 Room Air Intake and Output 04/20/20 04/21/20 19:00 07:00 Intake Total 1160 ml Output Total 0 ml Balance 0 ml 1160 ml Intake Oral 360 ml IV Total 800 ml Output Urine Total 0 ml # Voids 4 # Bowel Movements 1 Laboratory Tests Test 04/20/20 16:00 04/21/20 06:00 Urine Color Yellow Urine Appearance Slightly cloudy Urine pH 5 (4.5-8.0) Urine Specific [place] 1.015 (1.005-1.035) Urine Protein 1+ (NEGATIVE) H Urine Glucose (UA) Negative (NEGATIVE) Urine Ketones 2+ (NEGATIVE) H Urine Blood 2+ (NEGATIVE) H Urine Nitrite Negative (NEGATIVE) Urine Bilirubin Negative (NEGATIVE) Urine Urobilinogen Normal MG/DL (0.0-1.0) Urine Leukocyte Esterase 1+ (NEGATIVE) H Urine RBC 2-4 /HPF (0 - 0) H Urine WBC 2-4 /HPF (0 - 0) Urine Squamous Epithelial Cells None /LPF (NONE/OCC) Urine Bacteria Few /HPF (NONE) Urine Opiates Screen Negative (NEGATIVE) Urine Barbiturates Screen Negative (NEGATIVE) Phencyclidine (PCP) Screen Negative (NEGATIVE) Urine Amphetamines Screen Negative (NEGATIVE) Urine Benzodiazepines Screen Negative (NEGATIVE) Urine Cocaine Screen Negative (NEGATIVE) Urine Marijuana (THC) Screen Positive (NEGATIVE) H White Blood Count 7.5 K/UL (4.8-10.8) Red Blood Count 4.11 M/UL (4.70-6.10) L Hemoglobin 12.9 G/DL (14.2-18.0) L Hematocrit 36.8 % (42.0-52.0) L Mean Corpuscular Volume 89 FL (80-99) Mean Corpuscular Hemoglobin 31.4 PG (27.0-31.0) H Mean Corpuscular Hemoglobin Concent 35.1 G/DL (32.0-36.0) Red Cell Distribution Width 12.6 % (11.6-14.8) Platelet Count 195 K/UL (150-450) Mean Platelet Volume 10.0 FL (6.5-10.1) Neutrophils (%) (Auto) 76.0 % (45.0-75.0) H Lymphocytes (%) (Auto) 9.5 % (20.0-45.0) L Monocytes (%) (Auto) 9.1 % (1.0-10.0) Eosinophils (%) (Auto) 4.1 % (0.0-3.0) H Basophils (%) (Auto) 1.3 % (0.0-2.0) Sodium Level 135 MMOL/L (136-145) L Potassium Level 3.4 MMOL/L (3.5-5.1) L Chloride Level 102 MMOL/L (98-107) Carbon Dioxide Level 27 MMOL/L (21-32) Anion Gap 6 mmol/L (5-15) Blood Urea Nitrogen 30 mg/dL (7-18) H Creatinine 1.0 MG/DL (0.55-1.30) Estimat Glomerular Filtration Rate > 60 mL/min (>60) Glucose Level 159 MG/DL (74-106) H Calcium Level 8.3 MG/DL (8.5-10.1) L Total Creatine Kinase 855 U/L (26-308) H Carcinoembryonic Antigen Pending CA 19-9 Antigen Pending Microbiology Date/Time Source Procedure Growth Status 04/21/20 09:45 Nasopharynx SARS-CoV-2 RdRp Gene Assay - Final Complete 04/21/20 05:20 Rectum Received Height (Feet): 5 Height (Inches): 10.00 Weight (Pounds): 230 Medications Current Medications Medications (Trade) Dose Ordered Sig/Dao Route PRN Reason Start Time Stop Time Status Last Admin Dose Admin Acetaminophen (Tylenol) 650 mg Q4H PRN ORAL MILD Pain(1-3) & fever>101.4 04/20/20 21:30 05/20/20 21:29 Al Hydroxide/Mg Hydroxide (Mylanta) 30 ml Q4HR PRN ORAL GERD 04/20/20 21:30 05/20/20 21:29 Heparin Sodium (Porcine) (Heparin 5000 units/ml) 5,000 units EVERY 12 HOURS SUBQ 04/21/20 09:00 06/05/20 08:59 04/21/20 09:50 Pantoprazole (Protonix) 40 mg DAILY ORAL 04/21/20 09:00 05/21/20 08:59 04/21/20 09:50 Sodium Chloride 1,000 ml @ 100 mls/hr Q10H IV 04/20/20 21:30 05/20/20 21:29 04/21/20 09:50 Assessment/Plan Problem List: (1) Rhabdomyolysis ICD Codes: M62.82 - Rhabdomyolysis SNOMED: 779089776 (2) Lung mass Assessment & Plan: pending CT Positive for 3.9 cm right upper lobe lung mass. This is concerning for neoplasm. Further evaluation with CT scan should be considered if this has not been worked up previously. ICD Codes: R91.8 - Other nonspecific abnormal finding of lung field SNOMED: 481260396 (3) Myalgia ICD Codes: M79.10 - Myalgia, unspecified site SNOMED: 03617757 (4) Pain ICD Codes: R52 - Pain, unspecified SNOMED: 35797877 (5) Myositis ICD Codes: M60.9 - Myositis, unspecified SNOMED: 26312598 (6) Bruising of penis Assessment & Plan: 64-year-old male identified to have bruising of the abdomen penis pelvis and blistering around his thighs hip. Patient states incontinence and unfortunately at times unable to get changed or care. Patient seems fairly unkept and has limited ability to provide history as he is a poor historian. Currently denies nausea vomiting or pain. Is unaware of the bruising on his abdomen unsure how you receive them. Patient noted to have bruising around his lower abdomen flank and open blisters around his pubic and penis area. In his thigh he has a unopened blister. Some erythema. Mainly consistent with an con associated dermatitis. No abscess. Labs noted. Lung CT as above. No acute surgical invention at this time Local wound care initiated. Recommended for patient to shower but patient states he is unable to walk currently. Will have physical therapy work with patient to help with ambulation. Once able to ambulate recommend shower. In the meantime discussed with nursing staff will plan to wash with cough washcloth and Hibiclens. Apply Thera honey or silver microbial to lesion around the pubis and penis. Optifoam to blister. Activity as tolerated. Diet as tolerated. Will follow with recommendations. Thank you participate in patient's care ICD Codes: S30.21XA - Contusion of penis, initial encounter SNOMED: 32523636 (7) AXEL (acute kidney injury) ICD Codes: N17.9 - Acute kidney failure, unspecified SNOMED: 6377129, [id number] Feliz Woody Apr 21, 2020 13:43
--- NOTE | 2020-04-21 13:46 | NUR ---
CASE MANAGEMENT:INITIAL REVIEW 64 YR OLD MALE PRESENTED TO ED CC;PAIN SI;MYOSITIS. ACUTE KIDNEY INJURY. 98.4 99 21 140/99 96% ON RA NA 134 CL 94 BUN 58 CR 1.6 BG 110 AST 131 TCK 1762 BNP 406 ALB 3.1 UA+ PROTEIN, KETONES, BLOOD, LEUKOCYTE ESTERASE, RBC URINE TOX (+) THC COVID RAPID ~ NEGATIVE CXR ~ Positive for 3.9 cm right upper lobe lung mass. This is concerning for neoplasm. Further evaluation with CT scan should be considered if this has not been worked up previously. This finding was reported to Dr. Villanueva in the emergency room at the time of interpretation. Otherwise no acute process IS;IVF NS BOLUS X2 ADMITTED TO MED SURG MED SURG STATUS DCP;PATIENT REPORTS HOMELESSNESS
--- NOTE | 2020-04-21 13:50 | NUR ---
PT EVALUATION NOTE Patient seen for initial evaluation and treatment initiated. Patient presents with decreased strength and pain which impairs patient's ability to perform mobility tasks safely. Patient requires mod/max assist with bed mobility and CGA to maintain sitting at the EOB. Patient c/o / pain with movement. Patient unable to stand at this time. Patient will benefit from skilled inpatient PT intervention to increase LE strength and postural stability for improved level of functional mobility and safety. Recommend discharge to SNF for continued rehab once medically cleared by MD. Patient may benefit from use of FWW for ambulation depending on patient's progress. Addendum: 04/21/20 at 1433 by GILA PARKER PT Amended: Links added.
--- NOTE | 2020-04-21 14:04 | Diagnostic Imaging Report ---
Clinical Indication: Lung mass demonstrated on prior radiograph, shortness of breath. Technique: Spiral acquisitions obtained through the chest. No IV contrast utilized, , per referring physician request. Multiplanar reconstructions generated. Total dose length product 309 mGycm. CTDIvol(s) 7 mGy. Dose reduction achieved using automated exposure control Comparison: none Findings: In the posterolateral right lower lobe, there is a mass abutting the pleural surface which measures 3.8 x 3.6 cm orthogonal axial dimensions by 3.2 cm craniocaudad. This demonstrates slightly lobulated and slightly spiculated borders. There is some reticular opacity in the parenchyma surrounding this lesion. There are a few areas of centrilobular and anteroseptal emphysema in the upper lobes bilaterally. Bands of atelectasis and/or scarring are seen at the lung bases bilaterally. There is an area of groundglass opacity in the anteromedial right middle lobe. There are posterior dependent atelectatic changes on the left, and equivocally trace pleural fluid on the left. No right pleural effusion is demonstrated. There is some very faint hazy opacity in the periphery of the left upper lobe laterally at the level of the pulmonary hilum. The heart is upper limits normal in size. No pericardial effusion. There is a single prominent right paratracheal node which is round and measures approximately 16 mm in diameter. No definite mediastinal or hilar mass or adenopathy. Included thyroid is unremarkable. There is mild bilateral gynecomastia. No axillary or chest wall mass or adenopathy demonstrated. The bones demonstrate fractures of the anterolateral left fourth fifth and sixth ribs. Included upper bowel anatomy demonstrates cholelithiasis. The adrenals are unremarkable Impression: 3.8 x 3.6 x 3.2 cm right upper lobe mass, suspicious for primary pulmonary malignancy. Single prominent but not frankly enlarged paratracheal node, indeterminate for lymphadenopathy Acute appearing fractures of the left fourth fifth and sixth ribs. No evidence of pneumothorax Faint hazy opacity in the peripheral left upper lobe, nonspecific, could represent a small area of contusion related to the above Groundglass opacity in the anteromedial right middle lobe. This is nonspecific, could represent an area of active inflammation, chronic postinflammatory change, less likely neoplastic changes Basilar pulmonary atelectasis and scarring Bilateral upper lobe COPD changes Other findings as noted, including cholelithiasis, mild bilateral gynecomastia The CT scanner at [facility] is accredited by the [employer] and the scans are performed using protocols designed to limit radiation exposure to as low as reasonably achievable to attain images of sufficient resolution adequate for diagnostic evaluation.
--- NOTE | 2020-04-21 14:28 | Diagnostic Imaging Report ---
Indication: Abnormal renal function tests Technique: Grayscale and duplex images of the kidneys, retroperitoneum, and bladder were obtained. Comparison: none Findings: Right kidney measures 11 cm in length. Left kidney measures 10.1 cm in length. Both kidneys demonstrate normal echogenicity. No hydronephrosis. Is probably a scar in the renal cortex. No other focal abnormality. Normal inferior vena cava. Bladder is normal. Liver is imaged to some extent, demonstrates increased echogenicity Impression: Essentially unremarkable exam. Negative for hydronephrosis Possible fatty liver incidentally noted.
[2020-04-21 16:00] VITALS: BP 135/67
--- NOTE | 2020-04-21 19:14 | NUR ---
NURSE HAND-OFF: Important Events on Shift: Patient Status: stable/ full code Diet: regular Pending Orders: Pending Results/Labs:am labs: CBC, CMP Pending MD notification:[] Latest Vital Signs: Temperature 98.5 , Pulse 96 , B/P 135 /67 , Respiratory Rate 18 , O2 SAT 95 , Room Air, O2 Flow Rate . Vital Sign Comment: stable Latest Leger Fall Score: 35 Fall Risk: Medium Risk Safety Measures: Call light Within Reach, Bed Alarm Zone 1, Side Rails Side Rails x2, Bed position Low and Locked. Fall Precautions: yes, pt is none ambulatory. PT is in the case Yellow Socks Yellow Gown Patient Fall Education Report given to Pablito RAMON, pt in stable condition. laying in bed with no signs of distress.
--- NOTE | 2020-04-21 19:41 | NUR ---
NURSE NOTES: Pt. received from TRISTEN Spencer. Pt. AAOx4, on room air, breathing even and unlabored, no indications of respiratory distress, no complaints of pain. IV left AC 20g with NS @ 100cc. Bed low and locked, side rails x3 up, bed alarm active, and call light in reach.
[2020-04-21 20:00] VITALS: BP 114/61
[2020-04-22] VITALS: BP 123/75
[2020-04-22 04:00] VITALS: BP 127/72
[2020-04-22 06:14] LABS: BASOPHILS % (AUTO) 1.9 % (0.0-2.0); EOSINOPHILS % (AUTO) 2.5 % (0.0-3.0); HEMATOCRIT 34.4 % (42.0-52.0); HEMOGLOBIN 11.9 G/DL (14.2-18.0); LYMPHOCYTES % (AUTO) 12.1 % (20.0-45.0); MEAN CORPUSCULAR VOLUME 93 FL (80-99); NEUTROPHILS % (AUTO) 74.6 % (45.0-75.0); PLATELET COUNT 181 K/UL (150-450); RED BLOOD COUNT 3.71 M/UL (4.70-6.10); RED CELL DISTRIBUTION WIDTH 12.7 % (11.6-14.8); WHITE BLOOD COUNT 8.2 K/UL (4.8-10.8)
--- NOTE | 2020-04-22 06:33 | Hematology/Onc Progress Note ---
Assessment/Plan Assessment/Plan IMPRESSION # Lung mass on cxr .9 cm right upper lobe lung mass. This is concerning for neoplasm. --> does have a extensive hx of smoking --> Ct of the chest has been ordered today --> consider a biopsy if mass noted on ct # Anemia of chronic disease --> hgb 12 --> no e/o gi bleed # Leg edema --> r/o chf # Seizure disorder # Fatigue/malaise # Hypertension # Acute renal failure # COPD # elevated CK Appreciate consultation and dw RN Subjective HEENT: Denies: no symptoms, eye pain, blurred vision, tearing, double vision, ear pain, ear discharge, nose pain, nose congestion, throat pain, throat swelling, mouth pain, mouth swelling, other Cardiovascular: Denies: no symptoms, chest pain, edema, irregular heart rate, lightheadedness, palpitations, syncope, other Gastrointestinal/Abdominal: Denies: no symptoms, abdomen distended, abdominal pain, black stools, tarry stools, blood in stool, constipated, diarrhea, difficulty swallowing, nausea, poor appetite, poor fluid intake, rectal bleeding, vomiting, other Genitourinary: Denies: no symptoms, burning, discharge, frequency, flank pain, hematuria, incontinence, pain, urgency, other Neurologic/Psychiatric: Denies: no symptoms, anxiety, depressed, emotional problems, headache, numbness, paresthesia, pre-existing deficit, seizure, tingling, tremors, weakness, other Endocrine: Denies: no symptoms, excessive sweating, flushing, intolerance to cold, intolerance to heat, increased hunger, increased thirst, increased urine, unexplained weight gain, unexplained weight loss, other Hematologic/Lymphatic: Denies: no symptoms, anemia, easy bleeding, easy bruising, adenopathy, other Allergies: Coded Allergies: No Known Allergies (Unverified , 04/20/20) Subjective 04/22 no major changes, has not had ct chest biopsy yet done Objective Objective Current Medications Medications (Trade) Dose Ordered Sig/Dao Route PRN Reason Start Time Stop Time Status Last Admin Dose Admin Acetaminophen (Tylenol) 650 mg Q4H PRN ORAL MILD Pain(1-3) & fever>101.4 04/20/20 21:30 05/20/20 21:29 Al Hydroxide/Mg Hydroxide (Mylanta) 30 ml Q4HR PRN ORAL GERD 04/20/20 21:30 05/20/20 21:29 Heparin Sodium (Porcine) (Heparin 5000 units/ml) 5,000 units EVERY 12 HOURS SUBQ 04/21/20 09:00 06/05/20 08:59 04/21/20 20:21 Pantoprazole (Protonix) 40 mg DAILY ORAL 04/21/20 09:00 05/21/20 08:59 04/21/20 09:50 Sodium Chloride 1,000 ml @ 100 mls/hr Q10H IV 04/20/20 21:30 05/20/20 21:29 04/21/20 20:22 Last 24 Hour Vital Signs Date Time Temp Pulse Resp B/P (MAP) Pulse Ox O2 Delivery O2 Flow Rate FiO2 04/22/20 04:00 98.3 73 22 127/72 (90) 94 04/22/20 00:00 97.9 66 20 123/75 (91) 96 04/21/20 21:00 Room Air 04/21/20 20:00 98.2 70 20 114/61 (78) 97 04/21/20 16:00 98.5 96 18 135/67 (89) 95 04/21/20 12:00 98.2 96 18 121/64 (83) 94 04/21/20 09:00 Room Air 04/21/20 08:00 98.0 78 18 127/58 (81) 93 04/21/20 04:00 97.9 84 20 122/63 (82) 93 04/20/20 23:46 98.1 74 20 133/69 (90) 96 04/20/20 21:36 Room Air 04/20/20 19:15 97.7 69 21 137/63 (87) 96 04/20/20 19:01 98.4 93 16 138/89 98 Room Air 04/20/20 14:21 98.4 93 16 138/89 98 Room Air 04/20/20 11:44 98.4 99 18 140/99 (113) 98 Room Air 04/20/20 11:44 98.4 99 18 140/99 98 Room Air 04/20/20 11:44 98.4 Intake and Output 04/21/20 04/22/20 19:00 07:00 Intake Total 2300 ml 1600 ml Output Total 700 ml Balance 2300 ml 900 ml Intake Oral 1200 ml 600 ml IV Total 1100 ml 1000 ml Output Urine Total 700 ml # Voids 3 # Bowel Movements 1 Labs Test 04/20/20 12:00 04/20/20 16:00 04/21/20 06:00 04/22/20 05:39 White Blood Count 10.6 K/UL (4.8-10.8) 7.5 K/UL (4.8-10.8) 8.2 K/UL (4.8-10.8) Red Blood Count 5.02 M/UL (4.70-6.10) 4.11 M/UL (4.70-6.10) 3.71 M/UL (4.70-6.10) Hemoglobin 15.7 G/DL (14.2-18.0) 12.9 G/DL (14.2-18.0) 11.9 G/DL (14.2-18.0) Hematocrit 45.6 % (42.0-52.0) 36.8 % (42.0-52.0) 34.4 % (42.0-52.0) Mean Corpuscular Volume 91 FL (80-99) 89 FL (80-99) 93 FL (80-99) Mean Corpuscular Hemoglobin 31.2 PG (27.0-31.0) 31.4 PG (27.0-31.0) 32.0 PG (27.0-31.0) Mean Corpuscular Hemoglobin Concent 34.4 G/DL (32.0-36.0) 35.1 G/DL (32.0-36.0) 34.5 G/DL (32.0-36.0) Red Cell Distribution Width 12.1 % (11.6-14.8) 12.6 % (11.6-14.8) 12.7 % (11.6-14.8) Platelet Count 218 K/UL (150-450) 195 K/UL (150-450) 181 K/UL (150-450) Mean Platelet Volume 9.3 FL (6.5-10.1) 10.0 FL (6.5-10.1) 9.7 FL (6.5-10.1) Neutrophils (%) (Auto) 77.6 % (45.0-75.0) 76.0 % (45.0-75.0) 74.6 % (45.0-75.0) Lymphocytes (%) (Auto) 8.3 % (20.0-45.0) 9.5 % (20.0-45.0) 12.1 % (20.0-45.0) Monocytes (%) (Auto) 9.3 % (1.0-10.0) 9.1 % (1.0-10.0) 9.0 % (1.0-10.0) Eosinophils (%) (Auto) 2.5 % (0.0-3.0) 4.1 % (0.0-3.0) 2.5 % (0.0-3.0) Basophils (%) (Auto) 2.3 % (0.0-2.0) 1.3 % (0.0-2.0) 1.9 % (0.0-2.0) Sodium Level 134 MMOL/L (136-145) 135 MMOL/L (136-145) Potassium Level 3.7 MMOL/L (3.5-5.1) 3.4 MMOL/L (3.5-5.1) Chloride Level 94 MMOL/L (98-107) 102 MMOL/L (98-107) Carbon Dioxide Level 29 MMOL/L (21-32) 27 MMOL/L (21-32) Anion Gap 11 mmol/L (5-15) 6 mmol/L (5-15) Blood Urea Nitrogen 58 mg/dL (7-18) 30 mg/dL (7-18) Creatinine 1.6 MG/DL (0.55-1.30) 1.0 MG/DL (0.55-1.30) Estimat Glomerular Filtration Rate 43.7 mL/min (>60) > 60 mL/min (>60) Glucose Level 110 MG/DL (74-106) 159 MG/DL (74-106) Calcium Level 9.5 MG/DL (8.5-10.1) 8.3 MG/DL (8.5-10.1) Total Bilirubin 1.0 MG/DL (0.2-1.0) Aspartate Amino Transf (AST/SGOT) 131 U/L (15-37) Alanine Aminotransferase (ALT/SGPT) 68 U/L (12-78) Alkaline Phosphatase 102 U/L (46-116) Total Creatine Kinase 1762 U/L (26-308) 855 U/L (26-308) Troponin I 0.000 ng/mL (0.000-0.056) Pro-B-Type Natriuretic Peptide 406 pg/mL (0-125) Total Protein 7.9 G/DL (6.4-8.2) Albumin 3.1 G/DL (3.4-5.0) Globulin 4.8 g/dL Albumin/Globulin Ratio 0.6 (1.0-2.7) Serum Alcohol < 3 mg/dL Urine Color Yellow Urine Appearance Slightly cloudy Urine pH 5 (4.5-8.0) Urine Specific [place] 1.015 (1.005-1.035) Urine Protein 1+ (NEGATIVE) Urine Glucose (UA) Negative (NEGATIVE) Urine Ketones 2+ (NEGATIVE) Urine Blood 2+ (NEGATIVE) Urine Nitrite Negative (NEGATIVE) Urine Bilirubin Negative (NEGATIVE) Urine Urobilinogen Normal MG/DL (0.0-1.0) Urine Leukocyte Esterase 1+ (NEGATIVE) Urine RBC 2-4 /HPF (0 - 0) Urine WBC 2-4 /HPF (0 - 0) Urine Squamous Epithelial Cells None /LPF (NONE/OCC) Urine Bacteria Few /HPF (NONE) Urine Opiates Screen Negative (NEGATIVE) Urine Barbiturates Screen Negative (NEGATIVE) Phencyclidine (PCP) Screen Negative (NEGATIVE) Urine Amphetamines Screen Negative (NEGATIVE) Urine Benzodiazepines Screen Negative (NEGATIVE) Urine Cocaine Screen Negative (NEGATIVE) Urine Marijuana (THC) Screen Positive (NEGATIVE) Micro Microbiology Date/Time Source Procedure Growth Status 04/21/20 09:45 Nasopharynx SARS-CoV-2 RdRp Gene Assay - Final Complete Height (Feet): 5 Height (Inches): 10.00 Weight (Pounds): 230 Objective NAD clear breath sounds bilaterally without rhonchi or wheeze [id number] without MRG NABS nontender no HSM no CC noted edema nonfocal Zeb Kimble MD Apr 22, 2020 06:33
[2020-04-22 06:43] LABS: ALANINE AMINOTRANSFERASE 45 U/L (12-78); ALBUMIN 2.1 G/DL (3.4-5.0); ALBUMIN/GLOBULIN RATIO 0.6 (1.0-2.7); ALKALINE PHOSPHATASE 70 U/L (46-116); ANION GAP 4 mmol/L (5-15); ASPARTATE AMINO TRANSFERASE 67 U/L (15-37); BILIRUBIN,TOTAL 0.5 MG/DL (0.2-1.0); BLOOD UREA NITROGEN 16 mg/dL (7-18); CALCIUM 7.9 MG/DL (8.5-10.1); CARBON DIOXIDE 29 MMOL/L (21-32); CHLORIDE 101 MMOL/L (98-107); CREATININE 0.8 MG/DL (0.55-1.30); POTASSIUM 3.5 MMOL/L (3.5-5.1); SODIUM 134 MMOL/L (136-145)
--- NOTE | 2020-04-22 07:01 | NUR ---
NURSE HAND-OFF: Important Events on Shift:[pt. beddings changed, charisma care provided, IV started right FA 22g] Patient Status: awake Diet: regular Pending Orders: na Pending Results/Labs:na Pending MD notification:na Latest Vital Signs: Temperature 98.3 , Pulse 73 , B/P 127 /72 , Respiratory Rate 22 , O2 SAT 94 , Room Air, O2 Flow Rate . Vital Sign Comment: stable Latest Leger Fall Score: 35 Fall Risk: Medium Risk Safety Measures: Call light Within Reach, Bed Alarm Zone 1, Side Rails Side Rails x2, Bed position Low and Locked. Fall Precautions: Yellow Socks Yellow Gown Patient Fall Education Report given to [].
--- NOTE | 2020-04-22 07:30 | NUR ---
NURSE NOTES: Patient is in bed awake and able to verbalize needs. Stable. Cough noted, breathing is unlabored on room air. Patient instructed to use call light for assistance, verbalized understanding. Patient is in bed in locked and lowest position with call light within reach. All needs met at this time. Will continue to monitor.
--- NOTE | 2020-04-22 07:31 | NUR ---
HAND-OFF: Report given to TRISTEN Bush.
[2020-04-22 08:00] VITALS: BP 134/69
[2020-04-22] MEDS: Heparin 5000 units/ml inj SUBQ SCH ×2 (08:19→20:57)
--- NOTE | 2020-04-22 11:28 | General Progress Note ---
Subjective Allergies: Coded Allergies: No Known Allergies (Unverified , 04/20/20) Subjective no distress heme noted Objective Last 24 Hour Vital Signs Date Time Temp Pulse Resp B/P (MAP) Pulse Ox O2 Delivery O2 Flow Rate FiO2 04/22/20 09:00 Room Air 04/22/20 08:00 97.5 86 20 134/69 (90) 97 04/22/20 04:00 98.3 73 22 127/72 (90) 94 04/22/20 00:00 97.9 66 20 123/75 (91) 96 04/21/20 21:00 Room Air 04/21/20 20:00 98.2 70 20 114/61 (78) 97 04/21/20 16:00 98.5 96 18 135/67 (89) 95 04/21/20 12:00 98.2 96 18 121/64 (83) 94 Intake and Output 04/21/20 04/22/20 19:00 07:00 Intake Total 2300 ml 1700 ml Output Total 700 ml Balance 2300 ml 1000 ml Intake Oral 1200 ml 600 ml IV Total 1100 ml 1100 ml Output Urine Total 700 ml # Voids 3 # Bowel Movements 1 Laboratory Tests 04/22/20 05:39: White Blood Count 8.2, Red Blood Count 3.71L, Hemoglobin 11.9L, Hematocrit 34.4L , Mean Corpuscular Volume 93, Mean Corpuscular Hemoglobin 32.0H, Mean Corpuscular Hemoglobin Concent 34.5, Red Cell Distribution Width 12.7, Platelet Count 181, Mean Platelet Volume 9.7, Neutrophils (%) (Auto) 74.6, Lymphocytes (%) (Auto) 12.1L, Monocytes (%) (Auto) 9.0, Eosinophils (%) (Auto) 2.5, Basophils (%) (Auto) 1.9, Erythrocyte Sedimentation Rate 76H, Sodium Level 134L, Potassium Level 3.5, Chloride Level 101, Carbon Dioxide Level 29, Anion Gap 4L, Blood Urea Nitrogen 16, Creatinine 0.8, Estimat Glomerular Filtration Rate > 60, Glucose Level 98, Calcium Level 7.9L, Total Bilirubin 0.5, Aspartate Amino Transf (AST/SGOT) 67H, Alanine Aminotransferase (ALT/SGPT) 45, Alkaline Phosphatase 70, C-Reactive Protein, Quantitative 9.5H, Total Protein 5.8L, Albumin 2.1L, Globulin 3.7, Albumin/Globulin Ratio 0.6L 04/22/20 07:33: Prothrombin Time 10.9, Prothromb Time International Ratio 1.0 Height (Feet): 5 Height (Inches): 10.00 Weight (Pounds): 230 Objective WDWN NAD clear breath sounds bilaterally without rhonchi or wheeze [id number] without MRG NABS nontender no HSM no CCE nonfocal Assessment/Plan Assessment/Plan: IMPRESSION lung mass confirmed on CT leg edema seizure disorder fatigue/malaise hypertension acute renal failure COPD smoker elevated CK PLAN onc noted consider CT guided biopsy renal eval noted renal US negative respiratory care IV hydration with improved parameters resume meds PT dc with outpatient follow up of lung mass impression, plan, and exam edited and reviewed in detail care discussed with Robert Amado MD Apr 22, 2020 11:28
[2020-04-22 11:54] VITALS: BP 130/71
--- NOTE | 2020-04-22 13:37 | NUR ---
CASE MANAGEMENT:REVIEW SI;LUNG MASS. LE EDEMA. AC RENAL FAILURE. 98.6 86 22 94% ON RA NA 134 CA 7.9 ALB 2.1 CARCINOEMBRYONIC ~ 19.4 IS;PROTONIX PO QD HEPARIN SQ Q12 IVF NS @ 100/HR MED SURG STATUS DCP;PATIENT REPORTS HOMELESSNESS
--- NOTE | 2020-04-22 14:18 | NUR ---
COMMUNICATIONS SENIOR ASSOCIATE NOTE Pt provided verbal consent to discuss tx/care w/ his brother, Tenzin Bartlett who is living in [place]. #[phone]
--- NOTE | 2020-04-22 15:18 | Surgery Progress Note ---
Surgery Progress Note Subjective Additional Comments no bleeding chest CT noted no n/v comfortable Objective Last 24 Hour Vital Signs Date Time Temp Pulse Resp B/P (MAP) Pulse Ox O2 Delivery O2 Flow Rate FiO2 04/22/20 11:54 98.6 75 20 130/71 (90) 97 04/22/20 09:00 Room Air 04/22/20 08:00 97.5 86 20 134/69 (90) 97 04/22/20 04:00 98.3 73 22 127/72 (90) 94 04/22/20 00:00 97.9 66 20 123/75 (91) 96 04/21/20 21:00 Room Air 04/21/20 20:00 98.2 70 20 114/61 (78) 97 04/21/20 16:00 98.5 96 18 135/67 (89) 95 I&O Intake and Output 04/21/20 04/22/20 18:59 06:59 Intake Total 2300 ml 1800 ml Output Total 700 ml Balance 2300 ml 1100 ml Intake Oral 1200 ml 600 ml IV Total 1100 ml 1200 ml Output Urine Total 700 ml # Voids 3 # Bowel Movements 1 Cardiovascular: RSR Respiratory: decreased breath sounds Abdomen: non-tender, present bowel sounds Extremities: no tenderness, no cyanosis Laboratory Tests Test 04/22/20 05:39 04/22/20 07:33 White Blood Count 8.2 K/UL (4.8-10.8) Red Blood Count 3.71 M/UL (4.70-6.10) L Hemoglobin 11.9 G/DL (14.2-18.0) L Hematocrit 34.4 % (42.0-52.0) L Mean Corpuscular Volume 93 FL (80-99) Mean Corpuscular Hemoglobin 32.0 PG (27.0-31.0) H Mean Corpuscular Hemoglobin Concent 34.5 G/DL (32.0-36.0) Red Cell Distribution Width 12.7 % (11.6-14.8) Platelet Count 181 K/UL (150-450) Mean Platelet Volume 9.7 FL (6.5-10.1) Neutrophils (%) (Auto) 74.6 % (45.0-75.0) Lymphocytes (%) (Auto) 12.1 % (20.0-45.0) L Monocytes (%) (Auto) 9.0 % (1.0-10.0) Eosinophils (%) (Auto) 2.5 % (0.0-3.0) Basophils (%) (Auto) 1.9 % (0.0-2.0) Erythrocyte Sedimentation Rate 76 MM/HR (0-20) H Sodium Level 134 MMOL/L (136-145) L Potassium Level 3.5 MMOL/L (3.5-5.1) Chloride Level 101 MMOL/L (98-107) Carbon Dioxide Level 29 MMOL/L (21-32) Anion Gap 4 mmol/L (5-15) L Blood Urea Nitrogen 16 mg/dL (7-18) Creatinine 0.8 MG/DL (0.55-1.30) Estimat Glomerular Filtration Rate > 60 mL/min (>60) Glucose Level 98 MG/DL (74-106) Calcium Level 7.9 MG/DL (8.5-10.1) L Total Bilirubin 0.5 MG/DL (0.2-1.0) Aspartate Amino Transf (AST/SGOT) 67 U/L (15-37) H Alanine Aminotransferase (ALT/SGPT) 45 U/L (12-78) Alkaline Phosphatase 70 U/L (46-116) C-Reactive Protein, Quantitative 9.5 mg/dL (0.00-0.90) H Total Protein 5.8 G/DL (6.4-8.2) L Albumin 2.1 G/DL (3.4-5.0) L Globulin 3.7 g/dL Albumin/Globulin Ratio 0.6 (1.0-2.7) L Prothrombin Time 10.9 SEC (9.30-11.50) Prothromb Time International Ratio 1.0 (0.9-1.1) Plan Problems: (1) Rhabdomyolysis (2) Lung mass Assessment & Plan: pending CT Positive for 3.9 cm right upper lobe lung mass. This is concerning for neoplasm. Further evaluation with CT scan should be considered if this has not been worked up previously. In the posterolateral right lower lobe, there is a mass abutting the pleural surface which measures 3.8 x 3.6 cm orthogonal axial dimensions by 3.2 cm craniocaudad. This demonstrates slightly lobulated and slightly spiculated borders. There is some reticular opacity in the parenchyma surrounding this lesion. There are a few areas of centrilobular and anteroseptal emphysema in the upper lobes bilaterally. Bands of atelectasis and/or scarring are seen at the lung bases bilaterally. There is an area of groundglass opacity in the anteromedial right middle lobe. There are posterior dependent atelectatic changes on the left, and equivocally trace pleural fluid on the left. No right pleural effusion is demonstrated. The re is some very faint hazy opacity in the periphery of the left upper lobe laterally at the level of the pulmonary hilum. The heart is upper limits normal in size. No pericardial effusion. There is a single prominent right paratracheal node which is round and measures approximately 16 mm in diameter. No definite mediastinal or hilar mass or adenopathy. Included thyroid is unremarkable. There is mild bilateral gynecomastia. No axillary or chest wall mass or adenopathy demonstrated. The bones demonstrate fractures of the anterolateral left fourth fifth and sixth ribs. Included upper bowel anatomy demonstrates cholelithiasis. The adrenals are unremarkable Impression: 3.8 x 3.6 x 3.2 cm right upper lobe mass, suspicious for primary pulmonary malignancy. Single prominent but not frankly enlarged paratracheal node, indeterminate for lymphadenopathy Acute appearing fractures of the left fourth fifth and sixth ribs. No evidence of pneumothorax Faint hazy opacity in the peripheral left upper lobe, nonspecific, could represent a small area of contusion related to the above Groundglass opacity in the anteromedial right middle lobe. This is nonspecific, could represent an area of active inflammation, chronic postinflammatory change, less likely neoplastic changes Basilar pulmonary atelectasis and scarring Bilateral upper lobe COPD changes Other findings as noted, including cholelithiasis, mild bilateral gynecomastia (3) Myalgia (4) Pain (5) Myositis (6) Bruising of penis Assessment & Plan: 64-year-old male identified to have bruising of the abdomen penis pelvis and blistering around his thighs hip. Patient states incontinence and unfortunately at times unable to get changed or care. Patient seems fairly unkept and has limited ability to provide history as he is a poor historian. Currently denies nausea vomiting or pain. Is unaware of the bruising on his abdomen unsure how you receive them. Patient noted to have bruising around his lower abdomen flank and open blisters around his pubic and penis area. In his thigh he has a unopened blister. Some erythema. Mainly consistent with an con associated dermatitis. No abscess. Labs noted. Lung CT as above. No acute surgical invention at this time Local wound care initiated. Recommended for patient to shower but patient states he is unable to walk currently. Will have physical therapy work with patient to help with ambulation. Once able to ambulate recommend shower. In the meantime discussed with nursing staff will plan to wash with cough washcloth and Hibiclens. Apply Thera honey or silver microbial to lesion around the pubis and penis. Optifoam to blister. Activity as tolerated. Diet as tolerated. Will follow with recommendations. Thank you participate in patient's care (7) AXEL (acute kidney injury) Feliz Woody Apr 22, 2020 15:18
[2020-04-22 16:00] VITALS: BP 133/71
[2020-04-22] MEDS ORDERED: Dyna-Hex 2% Top Sol 2oz TOPIC SCH (16:15)
--- NOTE | 2020-04-22 17:14 | NUR ---
*-*DISCHARGE PLANNING*-* PATIENT HAS BEEN REFERRED TO: GERHARD JAMES P: [phone]
--- NOTE | 2020-04-22 19:46 | NUR ---
NURSE HAND-OFF: Important Events on Shift: dressing change done, charisma care given Patient Status: stable Diet: reg Pending Orders: n/a Pending Results/Labs:n/a Pending MD notification:n/a Latest Vital Signs: Temperature 100.0 , Pulse 86 , B/P 133 /71 , Respiratory Rate 19 , O2 SAT 97 , Room Air, O2 Flow Rate . Vital Sign Comment: n/a Latest Leger Fall Score: 35 Fall Risk: Medium Risk Safety Measures: Call light Within Reach, Bed Alarm Zone 1, Side Rails Side Rails x2, Bed position Low and Locked. Fall Precautions: Yellow Socks Yellow Gown Patient Fall Education Report given to Jc RAMON.
[2020-04-22 20:00] VITALS: BP 137/78
--- NOTE | 2020-04-22 20:00 | NUR ---
NURSE NOTES: Pt is in bed, awake and verbal. No acute distress noted.Vitals stable. Room air. NS running at 100ml/hr. Pt is bed bound, needs to be repositioned frequently. Pt has blister like sores in perineal area and rashes on lower abdominal fold, Dr. Woody saw the patient. Pt was cleaned, bed linen changed. Fall precautions in place. Pt will be monitored.
[2020-04-23] VITALS: BP 132/79
[2020-04-23 04:00] VITALS: BP 152/86
--- NOTE | 2020-04-23 04:44 | NUR ---
NURSE NOTES: Pt is in bed asleep. No acute distress noted. Vitals stable. Pt cleaned and wound care done.
--- NOTE | 2020-04-23 06:30 | NUR ---
NURSE NOTES: Patent signed consent for lung mass biopsy. Pt is currently NPO for the procedure.
--- NOTE | 2020-04-23 06:37 | Hematology/Onc Progress Note ---
Assessment/Plan Assessment/Plan IMPRESSION # Lung mass on cxr right upper lobe lung mass. This is concerning for neoplasm. --> does have a extensive hx of smoking --> Ct of the chest has been ordered and reviewed-> 3.8 x 3.6 x 3.2 cm right upper lobe mass, suspicious for primary pulmonary malignancy. --> consider a biopsy if mass noted on ct (has been ordered) # Anemia of chronic disease --> hgb 12 --> no e/o gi bleed # Leg edema --> r/o chf # Seizure disorder # Fatigue/malaise # Hypertension # Acute renal failure # COPD # elevated CK # Dvt ppx heparin sq Appreciate consultation and barry RN Subjective Constitutional: Denies: no symptoms, chills, fever, malaise, weakness, other HEENT: Denies: no symptoms, eye pain, blurred vision, tearing, double vision, ear pain, ear discharge, nose pain, nose congestion, throat pain, throat swelling, mouth pain, mouth swelling, other Cardiovascular: Denies: no symptoms, chest pain, edema, irregular heart rate, lightheadedness, palpitations, syncope, other Gastrointestinal/Abdominal: Denies: no symptoms, abdomen distended, abdominal pain, black stools, tarry stools, blood in stool, constipated, diarrhea, difficulty swallowing, nausea, poor appetite, poor fluid intake, rectal bleeding, vomiting, other Genitourinary: Denies: no symptoms, burning, discharge, frequency, flank pain, hematuria, incontinence, pain, urgency, other Neurologic/Psychiatric: Denies: no symptoms, anxiety, depressed, emotional problems, headache, numbness, paresthesia, pre-existing deficit, seizure, tingling, tremors, weakness, other Endocrine: Denies: no symptoms, excessive sweating, flushing, intolerance to cold, intolerance to heat, increased hunger, increased thirst, increased urine, unexplained weight gain, unexplained weight loss, other Hematologic/Lymphatic: Denies: no symptoms, anemia, easy bleeding, easy bruising, adenopathy, other Allergies: Coded Allergies: No Known Allergies (Unverified , 04/20/20) Subjective 04/22 no major changes, has not had ct chest biopsy yet done 04/23 no major events, barry rn again in am, order for consult has been placed Objective Objective Current Medications Medications (Trade) Dose Ordered Sig/Dao Route PRN Reason Start Time Stop Time Status Last Admin Dose Admin Acetaminophen (Tylenol) 650 mg Q4H PRN ORAL MILD Pain(1-3) & fever>101.4 04/20/20 21:30 05/20/20 21:29 04/22/20 16:42 Al Hydroxide/Mg Hydroxide (Mylanta) 30 ml Q4HR PRN ORAL GERD 04/20/20 21:30 05/20/20 21:29 Heparin Sodium (Porcine) (Heparin 5000 units/ml) 5,000 units EVERY 12 HOURS SUBQ 04/21/20 09:00 06/05/20 08:59 04/22/20 20:57 Pantoprazole (Protonix) 40 mg DAILY ORAL 04/21/20 09:00 05/21/20 08:59 04/22/20 08:18 Sodium Chloride 1,000 ml @ 100 mls/hr Q10H IV 04/20/20 21:30 05/20/20 21:29 04/22/20 23:33 Last 24 Hour Vital Signs Date Time Temp Pulse Resp B/P (MAP) Pulse Ox O2 Delivery O2 Flow Rate FiO2 04/23/20 04:00 97.5 84 20 152/86 (108) 94 04/23/20 00:00 97.3 80 20 132/79 (96) 96 04/22/20 21:00 Room Air 04/22/20 20:00 97.1 83 20 137/78 (97) 95 04/22/20 16:00 100.0 86 19 133/71 (91) 04/22/20 11:54 98.6 75 20 130/71 (90) 97 04/22/20 09:00 Room Air 04/22/20 08:00 97.5 86 20 134/69 (90) 97 04/22/20 04:00 98.3 73 22 127/72 (90) 94 04/22/20 00:00 97.9 66 20 123/75 (91) 96 04/21/20 21:00 Room Air 04/21/20 20:00 98.2 70 20 114/61 (78) 97 04/21/20 16:00 98.5 96 18 135/67 (89) 95 04/21/20 12:00 98.2 96 18 121/64 (83) 94 04/21/20 09:00 Room Air 04/21/20 08:00 98.0 78 18 127/58 (81) 93 Intake and Output 04/22/20 04/23/20 19:00 07:00 Intake Total 100 ml 1520 ml Output Total 650 ml Balance -550 ml 1520 ml Intake Oral 420 ml IV Total 100 ml 1100 ml Output Urine Total 650 ml # Voids 4 2 Labs Test 04/20/20 12:00 04/20/20 16:00 04/21/20 06:00 04/22/20 05:39 White Blood Count 10.6 K/UL (4.8-10.8) 7.5 K/UL (4.8-10.8) 8.2 K/UL (4.8-10.8) Red Blood Count 5.02 M/UL (4.70-6.10) 4.11 M/UL (4.70-6.10) 3.71 M/UL (4.70-6.10) Hemoglobin 15.7 G/DL (14.2-18.0) 12.9 G/DL (14.2-18.0) 11.9 G/DL (14.2-18.0) Hematocrit 45.6 % (42.0-52.0) 36.8 % (42.0-52.0) 34.4 % (42.0-52.0) Mean Corpuscular Volume 91 FL (80-99) 89 FL (80-99) 93 FL (80-99) Mean Corpuscular Hemoglobin 31.2 PG (27.0-31.0) 31.4 PG (27.0-31.0) 32.0 PG (27.0-31.0) Mean Corpuscular Hemoglobin Concent 34.4 G/DL (32.0-36.0) 35.1 G/DL (32.0-36.0) 34.5 G/DL (32.0-36.0) Red Cell Distribution Width 12.1 % (11.6-14.8) 12.6 % (11.6-14.8) 12.7 % (11.6-14.8) Platelet Count 218 K/UL (150-450) 195 K/UL (150-450) 181 K/UL (150-450) Mean Platelet Volume 9.3 FL (6.5-10.1) 10.0 FL (6.5-10.1) 9.7 FL (6.5-10.1) Neutrophils (%) (Auto) 77.6 % (45.0-75.0) 76.0 % (45.0-75.0) 74.6 % (45.0-75.0) Lymphocytes (%) (Auto) 8.3 % (20.0-45.0) 9.5 % (20.0-45.0) 12.1 % (20.0-45.0) Monocytes (%) (Auto) 9.3 % (1.0-10.0) 9.1 % (1.0-10.0) 9.0 % (1.0-10.0) Eosinophils (%) (Auto) 2.5 % (0.0-3.0) 4.1 % (0.0-3.0) 2.5 % (0.0-3.0) Basophils (%) (Auto) 2.3 % (0.0-2.0) 1.3 % (0.0-2.0) 1.9 % (0.0-2.0) Sodium Level 134 MMOL/L (136-145) 135 MMOL/L (136-145) 134 MMOL/L (136-145) Potassium Level 3.7 MMOL/L (3.5-5.1) 3.4 MMOL/L (3.5-5.1) 3.5 MMOL/L (3.5-5.1) Chloride Level 94 MMOL/L (98-107) 102 MMOL/L (98-107) 101 MMOL/L (98-107) Carbon Dioxide Level 29 MMOL/L (21-32) 27 MMOL/L (21-32) 29 MMOL/L (21-32) Anion Gap 11 mmol/L (5-15) 6 mmol/L (5-15) 4 mmol/L (5-15) Blood Urea Nitrogen 58 mg/dL (7-18) 30 mg/dL (7-18) 16 mg/dL (7-18) Creatinine 1.6 MG/DL (0.55-1.30) 1.0 MG/DL (0.55-1.30) 0.8 MG/DL (0.55-1.30) Estimat Glomerular Filtration Rate 43.7 mL/min (>60) > 60 mL/min (>60) > 60 mL/min (>60) Glucose Level 110 MG/DL (74-106) 159 MG/DL (74-106) 98 MG/DL (74-106) Calcium Level 9.5 MG/DL (8.5-10.1) 8.3 MG/DL (8.5-10.1) 7.9 MG/DL (8.5-10.1) Total Bilirubin 1.0 MG/DL (0.2-1.0) 0.5 MG/DL (0.2-1.0) Aspartate Amino Transf (AST/SGOT) 131 U/L (15-37) 67 U/L (15-37) Alanine Aminotransferase (ALT/SGPT) 68 U/L (12-78) 45 U/L (12-78) Alkaline Phosphatase 102 U/L (46-116) 70 U/L (46-116) Total Creatine Kinase 1762 U/L (26-308) 855 U/L (26-308) Troponin I 0.000 ng/mL (0.000-0.056) Pro-B-Type Natriuretic Peptide 406 pg/mL (0-125) Total Protein 7.9 G/DL (6.4-8.2) 5.8 G/DL (6.4-8.2) Albumin 3.1 G/DL (3.4-5.0) 2.1 G/DL (3.4-5.0) Globulin 4.8 g/dL 3.7 g/dL Albumin/Globulin Ratio 0.6 (1.0-2.7) 0.6 (1.0-2.7) Serum Alcohol < 3 mg/dL Urine Color Yellow Urine Appearance Slightly cloudy Urine pH 5 (4.5-8.0) Urine Specific [place] 1.015 (1.005-1.035) Urine Protein 1+ (NEGATIVE) Urine Glucose (UA) Negative (NEGATIVE) Urine Ketones 2+ (NEGATIVE) Urine Blood 2+ (NEGATIVE) Urine Nitrite Negative (NEGATIVE) Urine Bilirubin Negative (NEGATIVE) Urine Urobilinogen Normal MG/DL (0.0-1.0) Urine Leukocyte Esterase 1+ (NEGATIVE) Urine RBC 2-4 /HPF (0 - 0) Urine WBC 2-4 /HPF (0 - 0) Urine Squamous Epithelial Cells None /LPF (NONE/OCC) Urine Bacteria Few /HPF (NONE) Urine Opiates Screen Negative (NEGATIVE) Urine Barbiturates Screen Negative (NEGATIVE) Phencyclidine (PCP) Screen Negative (NEGATIVE) Urine Amphetamines Screen Negative (NEGATIVE) Urine Benzodiazepines Screen Negative (NEGATIVE) Urine Cocaine Screen Negative (NEGATIVE) Urine Marijuana (THC) Screen Positive (NEGATIVE) Carcinoembryonic Antigen 19.4 ng/mL (0.0-4.7) Erythrocyte Sedimentation Rate 76 MM/HR (0-20) C-Reactive Protein, Quantitative 9.5 mg/dL (0.00-0.90) Test 04/22/20 07:33 Prothrombin Time 10.9 SEC (9.30-11.50) Prothromb Time International Ratio 1.0 (0.9-1.1) Height (Feet): 5 Height (Inches): 10.00 Weight (Pounds): 230 Objective NAD clear breath sounds bilaterally without rhonchi or wheeze [id number] without MRG NABS nontender no HSM no CC noted edema nonfocal Zeb Kimble MD Apr 23, 2020 06:37
[2020-04-23] MEDS ORDERED: Sodium Bicarbonate 4% 2.4meq/5ml vial IV PRN (06:45)
[2020-04-23] MEDS ORDERED: Lidocaine 1% Plain 30 ml INJ PRN (06:45)
--- NOTE | 2020-04-23 07:42 | NUR ---
NURSE HAND-OFF: Important Events on Shift:[Lung mass biopsy ordered for today, consent signed.] Patient Status: [Stable] Diet: [NPO] Pending Orders: [] Pending Results/Labs:[] Pending MD notification:[] Latest Vital Signs: Temperature 97.5 , Pulse 84 , B/P 152 /86 , Respiratory Rate 20 , O2 SAT 94 , Room Air, O2 Flow Rate . Vital Sign Comment: [] Latest Leger Fall Score: 35 Fall Risk: Medium Risk Safety Measures: Call light Within Reach, Bed Alarm Zone 1, Side Rails Side Rails x2, Bed position Low and Locked. Fall Precautions: Yellow Socks Yellow Gown Patient Fall Education Report given to [ TRISTEN Burr].
--- NOTE | 2020-04-23 07:45 | NUR ---
NURSE NOTES: Pt awake in bed, alert and oriented, able to make needs known. on RA, breathing even and unlabored. No acute distress noted. IV site intact and patent running IVF as ordered. Pt on NPO for lung biopsy. Pt aware. Consent signed by pt. Bed in low position and locked. Call light within reach. Will continue to monitor.
[2020-04-23 08:00] VITALS: BP 151/73
[2020-04-23 08:32] LABS: ANION GAP 5 mmol/L (5-15); BLOOD UREA NITROGEN 9 mg/dL (7-18); CALCIUM 8.1 MG/DL (8.5-10.1); CARBON DIOXIDE 29 MMOL/L (21-32); CHLORIDE 102 MMOL/L (98-107); CREATININE 0.8 MG/DL (0.55-1.30); POTASSIUM 3.4 MMOL/L (3.5-5.1); SODIUM 136 MMOL/L (136-145)
[2020-04-23 08:45] LABS: BASOPHILS % (AUTO) 0.5 % (0.0-2.0); EOSINOPHILS % (AUTO) 2.7 % (0.0-3.0); HEMATOCRIT 35.6 % (42.0-52.0); HEMOGLOBIN 12.3 G/DL (14.2-18.0); LYMPHOCYTES % (AUTO) 12.6 % (20.0-45.0); MEAN CORPUSCULAR VOLUME 91 FL (80-99); MONOCYTES % (AUTO) 10.1 % (1.0-10.0); NEUTROPHILS % (AUTO) 74.2 % (45.0-75.0); PLATELET COUNT 168 K/UL (150-450); RED BLOOD COUNT 3.89 M/UL (4.70-6.10); WHITE BLOOD COUNT 6.9 K/UL (4.8-10.8)
[2020-04-23] MEDS: Heparin 5000 units/ml inj SUBQ SCH ×2 (08:49→20:48)
[2020-04-23 12:00] VITALS: BP 147/78
--- NOTE | 2020-04-23 14:19 | General Progress Note ---
Subjective Allergies: Coded Allergies: No Known Allergies (Unverified , 04/20/20) Subjective no distress heme noted Objective Last 24 Hour Vital Signs Date Time Temp Pulse Resp B/P (MAP) Pulse Ox O2 Delivery O2 Flow Rate FiO2 04/23/20 12:00 98.2 89 20 147/78 (101) 94 04/23/20 09:00 Room Air 04/23/20 08:00 99.0 87 20 151/73 (99) 94 04/23/20 04:00 97.5 84 20 152/86 (108) 94 04/23/20 00:00 97.3 80 20 132/79 (96) 96 04/22/20 21:00 Room Air 04/22/20 20:00 97.1 83 20 137/78 (97) 95 04/22/20 16:00 100.0 86 19 133/71 (91) Intake and Output 04/22/20 04/23/20 19:00 07:00 Intake Total 100 ml 1520 ml Output Total 650 ml Balance -550 ml 1520 ml Intake Oral 420 ml IV Total 100 ml 1100 ml Output Urine Total 650 ml # Voids 4 2 Laboratory Tests 04/23/20 05:36: White Blood Count 6.9, Red Blood Count 3.89L, Hemoglobin 12.3L, Hematocrit 35.6L , Mean Corpuscular Volume 91, Mean Corpuscular Hemoglobin 31.7H, Mean Corpuscular Hemoglobin Concent 34.7, Red Cell Distribution Width 13.0, Platelet Count 168, Mean Platelet Volume 7.8, Neutrophils (%) (Auto) 74.2, Lymphocytes (%) (Auto) 12.6L, Monocytes (%) (Auto) 10.1H, Eosinophils (%) (Auto) 2.7, Basophils (%) (Auto) 0.5, Sodium Level 136, Potassium Level 3.4L, Chloride Level 102, Carbon Dioxide Level 29, Anion Gap 5, Blood Urea Nitrogen 9, Creatinine 0.8, Estimat Glomerular Filtration Rate > 60, Glucose Level 85, Calcium Level 8.1L Height (Feet): 5 Height (Inches): 10.00 Weight (Pounds): 230 Objective WDWN NAD clear breath sounds bilaterally without rhonchi or wheeze [id number] without MRG NABS nontender no HSM no CCE nonfocal Assessment/Plan Assessment/Plan: IMPRESSION lung mass confirmed on CT leg edema seizure disorder fatigue/malaise hypertension acute renal failure COPD smoker elevated CK PLAN onc noted CT guided biopsy renal eval noted renal US negative respiratory care IV hydration maintain meds PT dc to snf short term impression, plan, and exam edited and reviewed in detail care discussed with Robert Amado MD Apr 23, 2020 14:19
--- NOTE | 2020-04-23 15:37 | Surgery Progress Note ---
Surgery Progress Note Subjective Symptoms: improved Objective Last 24 Hour Vital Signs Date Time Temp Pulse Resp B/P (MAP) Pulse Ox O2 Delivery O2 Flow Rate FiO2 04/23/20 12:00 98.2 89 20 147/78 (101) 94 04/23/20 09:00 Room Air 04/23/20 08:00 99.0 87 20 151/73 (99) 94 04/23/20 04:00 97.5 84 20 152/86 (108) 94 04/23/20 00:00 97.3 80 20 132/79 (96) 96 04/22/20 21:00 Room Air 04/22/20 20:00 97.1 83 20 137/78 (97) 95 04/22/20 16:00 100.0 86 19 133/71 (91) I&O Intake and Output 04/22/20 04/23/20 19:00 07:00 Intake Total 100 ml 1520 ml Output Total 650 ml Balance -550 ml 1520 ml Intake Oral 420 ml IV Total 100 ml 1100 ml Output Urine Total 650 ml # Voids 4 2 Cardiovascular: RSR Respiratory: decreased breath sounds Abdomen: non-tender, present bowel sounds Extremities: no tenderness, no cyanosis Laboratory Tests Test 04/23/20 05:36 White Blood Count 6.9 K/UL (4.8-10.8) Red Blood Count 3.89 M/UL (4.70-6.10) L Hemoglobin 12.3 G/DL (14.2-18.0) L Hematocrit 35.6 % (42.0-52.0) L Mean Corpuscular Volume 91 FL (80-99) Mean Corpuscular Hemoglobin 31.7 PG (27.0-31.0) H Mean Corpuscular Hemoglobin Concent 34.7 G/DL (32.0-36.0) Red Cell Distribution Width 13.0 % (11.6-14.8) Platelet Count 168 K/UL (150-450) Mean Platelet Volume 7.8 FL (6.5-10.1) Neutrophils (%) (Auto) 74.2 % (45.0-75.0) Lymphocytes (%) (Auto) 12.6 % (20.0-45.0) L Monocytes (%) (Auto) 10.1 % (1.0-10.0) H Eosinophils (%) (Auto) 2.7 % (0.0-3.0) Basophils (%) (Auto) 0.5 % (0.0-2.0) Sodium Level 136 MMOL/L (136-145) Potassium Level 3.4 MMOL/L (3.5-5.1) L Chloride Level 102 MMOL/L (98-107) Carbon Dioxide Level 29 MMOL/L (21-32) Anion Gap 5 mmol/L (5-15) Blood Urea Nitrogen 9 mg/dL (7-18) Creatinine 0.8 MG/DL (0.55-1.30) Estimat Glomerular Filtration Rate > 60 mL/min (>60) Glucose Level 85 MG/DL (74-106) Calcium Level 8.1 MG/DL (8.5-10.1) L Plan Problems: (1) Rhabdomyolysis (2) Lung mass Assessment & Plan: pending CT Positive for 3.9 cm right upper lobe lung mass. This is concerning for neoplasm. Further evaluation with CT scan should be considered if this has not been worked up previously. In the posterolateral right lower lobe, there is a mass abutting the pleural surface which measures 3.8 x 3.6 cm orthogonal axial dimensions by 3.2 cm craniocaudad. This demonstrates slightly lobulated and slightly spiculated borders. There is some reticular opacity in the parenchyma surrounding this lesion. There are a few areas of centrilobular and anteroseptal emphysema in the upper lobes bilaterally. Bands of atelectasis and/or scarring are seen at the lung bases bilaterally. There is an area of groundglass opacity in the anteromedial right middle lobe. There are posterior dependent atelectatic changes on the left, and equivocally trace pleural fluid on the left. No right pleural effusion is demonstrated. There is some very faint hazy opacity in the periphery of the left upper lobe laterally at the level of the pulmonary hilum. The heart is upper limits normal in size. No pericardial effusion. There is a single prominent right paratracheal node which is round and measures approximately 16 mm in diameter. No definite mediastinal or hilar mass or adenopathy. Included thyroid is unremarkable. There is mild bilateral gynecomastia. No axillary or chest wall mass or adenopathy demonstrated. The bones demonstrate fractures of the anterolateral left fourth fifth and sixth ribs. Included upper bowel anatomy demonstrates cholelithiasis. The adrenals are unremarkable Impression: 3.8 x 3.6 x 3.2 cm right upper lobe mass, suspicious for primary pulmonary malignancy. Single prominent but not frankly enlarged paratracheal node, indeterminate for lymphadenopathy Acute appearing fractures of the left fourth fifth and sixth ribs. No evidence of pneumothorax Faint hazy opacity in the peripheral left upper lobe, nonspecific, could represent a small area of contusion related to the above Groundglass opacity in the anteromedial right middle lobe. This is nonspecific, could represent an area of active inflammation, chronic postinflammatory change, less likely neoplastic changes Basilar pulmonary atelectasis and scarring Bilateral upper lobe COPD changes Other findings as noted, including cholelithiasis, mild bilateral gynecomastia (3) Myalgia (4) Pain (5) Myositis (6) Bruising of penis Assessment & Plan: 64-year-old male identified to have bruising of the abdomen penis pelvis and blistering around his thighs hip. Patient states incontinence and unfortunately at times unable to get changed or care. Patient seems fairly unkept and has limited ability to provide history as he is a poor historian. Currently denies nausea vomiting or pain. Is unaware of the bruising on his abdomen unsure how you receive them. Patient noted to have bruising around his lower abdomen flank and open blisters around his pubic and penis area. In his thigh he has a unopened blister. Some erythema. Mainly consistent with an con associated dermatitis. No abscess. Labs noted. Lung CT as above. No acute surgical invention at this time Local wound care initiated. Recommended for patient to shower but patient states he is unable to walk currently. Will have physical therapy work with patient to help with ambulation. Once able to ambulate recommend shower. In the meantime discussed with nursing staff will plan to wash with cough washcloth and Hibiclens. Apply Thera honey or silver microbial to lesion around the pubis and penis. Optifoam to blister. Activity as tolerated. Diet as tolerated. Will follow with recommendations. Thank you participate in patient's care (7) AXEL (acute kidney injury) Feliz Woody Apr 23, 2020 15:37
[2020-04-23 16:00] VITALS: BP 137/80
[2020-04-23 20:00] VITALS: BP 129/63
--- NOTE | 2020-04-23 20:03 | NUR ---
NURSE HAND-OFF: Important Events on Shift:[Lung biopsy tomorrow, NPO after midnight] Patient Status: [] Diet: [NPO] Pending Orders: [] Pending Results/Labs:[] Pending MD notification:[] Latest Vital Signs: Temperature 98.7 , Pulse 80 , B/P 137 /80 , Respiratory Rate 20 , O2 SAT 95 , Room Air, O2 Flow Rate . Vital Sign Comment: [stable] Latest Leger Fall Score: 35 Fall Risk: Medium Risk Safety Measures: Call light Within Reach, Bed Alarm Zone 1, Side Rails Side Rails x2, Bed position Low and Locked. Fall Precautions: Yellow Socks Yellow Gown Patient Fall Education Report given to [TRISTEN Espana].
--- NOTE | 2020-04-23 20:04 | NUR ---
NURSE NOTES: Received patient in no apparent distress. A&OX4. IV site patent and intact. Remind patient NPO midnight for tomorrow procedure, patient fully understood. Bed in lowest position. Call light within reach. Will continue to monitor.
[2020-04-24] VITALS (9 sets, daily range): BP systolic 135–147; BP diastolic 71–85
[2020-04-24 05:31] LABS: BASOPHILS % (AUTO) 2.4 % (0.0-2.0); HEMATOCRIT 34.5 % (42.0-52.0); HEMOGLOBIN 12.7 G/DL (14.2-18.0); LYMPHOCYTES % (AUTO) 14.8 % (20.0-45.0); MEAN CORPUSCULAR VOLUME 87 FL (80-99); MONOCYTES % (AUTO) 11.4 % (1.0-10.0); NEUTROPHILS % (AUTO) 67.4 % (45.0-75.0); PLATELET COUNT 197 K/UL (150-450); RED BLOOD COUNT 3.98 M/UL (4.70-6.10); RED CELL DISTRIBUTION WIDTH 14.2 % (11.6-14.8); WHITE BLOOD COUNT 7.3 K/UL (4.8-10.8)
[2020-04-24 05:41] LABS: ANION GAP 3 mmol/L (5-15); BLOOD UREA NITROGEN 7 mg/dL (7-18); CARBON DIOXIDE 30 MMOL/L (21-32); CHLORIDE 103 MMOL/L (98-107); CREATININE 0.7 MG/DL (0.55-1.30); POTASSIUM 3.4 MMOL/L (3.5-5.1); SODIUM 136 MMOL/L (136-145)
--- NOTE | 2020-04-24 07:30 | NUR ---
NURSE NOTES: Patient lying in bed awake. No complain of pain or distress at this time. IV dressing intact and dry. Bed lowest position. Call light within reach. Will continue to monitor.
--- NOTE | 2020-04-24 07:53 | NUR ---
NURSE HAND-OFF: Important Events on Shift: Lung Biopsy today Patient Status: Diet: NPO Pending Orders: Pending Results/Labs: Pending MD notification: Latest Vital Signs: Temperature 98.3 , Pulse 85 , B/P 141 /74 , Respiratory Rate 20 , O2 SAT 94 , Room Air, O2 Flow Rate . Vital Sign Comment: Latest Leger Fall Score: 35 Fall Risk: Medium Risk Safety Measures: Call light Within Reach, Bed Alarm Zone 1, Side Rails Side Rails x2, Bed position Low and Locked. Fall Precautions: Yellow Socks Yellow Gown Patient Fall Education Report given to Chris RAMON.
--- NOTE | 2020-04-24 08:05 | Hematology/Onc Progress Note ---
Assessment/Plan Assessment/Plan IMPRESSION # Lung mass on cxr right upper lobe lung mass. This is concerning for neoplasm. --> does have a extensive hx of smoking --> Ct of the chest has been ordered and reviewed-> 3.8 x 3.6 x 3.2 cm right upper lobe mass, suspicious for primary pulmonary malignancy. --> consider a biopsy if mass noted on ct (has been ordered) # Anemia of chronic disease --> hgb 12 --> no e/o gi bleed # Leg edema --> r/o chf # Seizure disorder # Fatigue/malaise # Hypertension # Acute renal failure # COPD # elevated CK # Dvt ppx heparin sq Appreciate consultation and barry RN Subjective HEENT: Denies: no symptoms, eye pain, blurred vision, tearing, double vision, ear pain, ear discharge, nose pain, nose congestion, throat pain, throat swelling, mouth pain, mouth swelling, other Gastrointestinal/Abdominal: Denies: no symptoms, abdomen distended, abdominal pain, black stools, tarry stools, blood in stool, constipated, diarrhea, difficulty swallowing, nausea, poor appetite, poor fluid intake, rectal bleeding, vomiting, other Genitourinary: Denies: no symptoms, burning, discharge, frequency, flank pain, hematuria, incontinence, pain, urgency, other Neurologic/Psychiatric: Denies: no symptoms, anxiety, depressed, emotional problems, headache, numbness, paresthesia, pre-existing deficit, seizure, tingling, tremors, weakness, other Endocrine: Denies: no symptoms, excessive sweating, flushing, intolerance to cold, intolerance to heat, increased hunger, increased thirst, increased urine, unexplained weight gain, unexplained weight loss, other Hematologic/Lymphatic: Denies: no symptoms, anemia, easy bleeding, easy bruising, adenopathy, other Allergies: Coded Allergies: No Known Allergies (Unverified , 04/20/20) Subjective 04/22 no major changes, has not had ct chest biopsy yet done 04/23 no major events, barry rn again in am 04/24 meds noted, no bleeding,zeenat mancuso rn, no major events seen, biopsy has been ordered for today Objective Objective Current Medications Medications (Trade) Dose Ordered Sig/Dao Route PRN Reason Start Time Stop Time Status Last Admin Dose Admin Acetaminophen (Tylenol) 650 mg Q4H PRN ORAL MILD Pain(1-3) & fever>101.4 04/20/20 21:30 05/20/20 21:29 04/22/20 16:42 Al Hydroxide/Mg Hydroxide (Mylanta) 30 ml Q4HR PRN ORAL GERD 04/20/20 21:30 05/20/20 21:29 Heparin Sodium (Porcine) (Heparin 5000 units/ml) 5,000 units EVERY 12 HOURS SUBQ 04/21/20 09:00 06/05/20 08:59 04/22/20 20:57 Lidocaine HCl (Xylocaine 1% 30ml) 30 ml NOW PRN INJ Radiology Procedure 04/23/20 06:45 04/25/20 06:44 Pantoprazole (Protonix) 40 mg DAILY ORAL 04/21/20 09:00 05/21/20 08:59 04/22/20 08:18 Sodium Bicarbonate (Sodium Bicarbonate 4%) 1 ml NOW PRN IV Radiology Procedure 04/23/20 06:45 04/25/20 06:44 Sodium Chloride 1,000 ml @ 100 mls/hr Q10H IV 04/20/20 21:30 05/20/20 21:29 04/24/20 05:03 Last 24 Hour Vital Signs Date Time Temp Pulse Resp B/P (MAP) Pulse Ox O2 Delivery O2 Flow Rate FiO2 04/24/20 04:00 98.3 85 20 141/74 (96) 94 04/24/20 00:00 98.5 83 20 137/78 (97) 96 04/23/20 21:00 Room Air 04/23/20 20:00 98.6 87 20 129/63 (85) 94 04/23/20 16:00 98.7 80 20 137/80 (99) 95 04/23/20 12:00 98.2 89 20 147/78 (101) 94 04/23/20 09:00 Room Air 04/23/20 08:00 99.0 87 20 151/73 (99) 94 04/23/20 04:00 97.5 84 20 152/86 (108) 94 04/23/20 00:00 97.3 80 20 132/79 (96) 96 04/22/20 21:00 Room Air 04/22/20 20:00 97.1 83 20 137/78 (97) 95 04/22/20 16:00 100.0 86 19 133/71 (91) 04/22/20 11:54 98.6 75 20 130/71 (90) 97 04/22/20 09:00 Room Air Intake and Output 04/23/20 04/24/20 19:00 07:00 Intake Total 700 ml 1000 ml Output Total 1200 ml 1300 ml Balance -500 ml -300 ml Intake Oral 700 ml IV Total 1000 ml Output Urine Total 1200 ml 1300 ml Labs Test 04/22/20 05:39 04/22/20 07:33 04/23/20 05:36 04/24/20 04:48 White Blood Count 8.2 K/UL (4.8-10.8) 6.9 K/UL (4.8-10.8) 7.3 K/UL (4.8-10.8) Red Blood Count 3.71 M/UL (4.70-6.10) 3.89 M/UL (4.70-6.10) 3.98 M/UL (4.70-6.10) Hemoglobin 11.9 G/DL (14.2-18.0) 12.3 G/DL (14.2-18.0) 12.7 G/DL (14.2-18.0) Hematocrit 34.4 % (42.0-52.0) 35.6 % (42.0-52.0) 34.5 % (42.0-52.0) Mean Corpuscular Volume 93 FL (80-99) 91 FL (80-99) 87 FL (80-99) Mean Corpuscular Hemoglobin 32.0 PG (27.0-31.0) 31.7 PG (27.0-31.0) 31.8 PG (27.0-31.0) Mean Corpuscular Hemoglobin Concent 34.5 G/DL (32.0-36.0) 34.7 G/DL (32.0-36.0) 36.7 G/DL (32.0-36.0) Red Cell Distribution Width 12.7 % (11.6-14.8) 13.0 % (11.6-14.8) 14.2 % (11.6-14.8) Platelet Count 181 K/UL (150-450) 168 K/UL (150-450) 197 K/UL (150-450) Mean Platelet Volume 9.7 FL (6.5-10.1) 7.8 FL (6.5-10.1) 9.3 FL (6.5-10.1) Neutrophils (%) (Auto) 74.6 % (45.0-75.0) 74.2 % (45.0-75.0) 67.4 % (45.0-75.0) Lymphocytes (%) (Auto) 12.1 % (20.0-45.0) 12.6 % (20.0-45.0) 14.8 % (20.0-45.0) Monocytes (%) (Auto) 9.0 % (1.0-10.0) 10.1 % (1.0-10.0) 11.4 % (1.0-10.0) Eosinophils (%) (Auto) 2.5 % (0.0-3.0) 2.7 % (0.0-3.0) 4.0 % (0.0-3.0) Basophils (%) (Auto) 1.9 % (0.0-2.0) 0.5 % (0.0-2.0) 2.4 % (0.0-2.0) Erythrocyte Sedimentation Rate 76 MM/HR (0-20) Sodium Level 134 MMOL/L (136-145) 136 MMOL/L (136-145) 136 MMOL/L (136-145) Potassium Level 3.5 MMOL/L (3.5-5.1) 3.4 MMOL/L (3.5-5.1) 3.4 MMOL/L (3.5-5.1) Chloride Level 101 MMOL/L (98-107) 102 MMOL/L (98-107) 103 MMOL/L (98-107) Carbon Dioxide Level 29 MMOL/L (21-32) 29 MMOL/L (21-32) 30 MMOL/L (21-32) Anion Gap 4 mmol/L (5-15) 5 mmol/L (5-15) 3 mmol/L (5-15) Blood Urea Nitrogen 16 mg/dL (7-18) 9 mg/dL (7-18) 7 mg/dL (7-18) Creatinine 0.8 MG/DL (0.55-1.30) 0.8 MG/DL (0.55-1.30) 0.7 MG/DL (0.55-1.30) Estimat Glomerular Filtration Rate > 60 mL/min (>60) > 60 mL/min (>60) > 60 mL/min (>60) Glucose Level 98 MG/DL (74-106) 85 MG/DL (74-106) 94 MG/DL (74-106) Calcium Level 7.9 MG/DL (8.5-10.1) 8.1 MG/DL (8.5-10.1) 8.0 MG/DL (8.5-10.1) Total Bilirubin 0.5 MG/DL (0.2-1.0) Aspartate Amino Transf (AST/SGOT) 67 U/L (15-37) Alanine Aminotransferase (ALT/SGPT) 45 U/L (12-78) Alkaline Phosphatase 70 U/L (46-116) C-Reactive Protein, Quantitative 9.5 mg/dL (0.00-0.90) Total Protein 5.8 G/DL (6.4-8.2) Albumin 2.1 G/DL (3.4-5.0) Globulin 3.7 g/dL Albumin/Globulin Ratio 0.6 (1.0-2.7) Prothrombin Time 10.9 SEC (9.30-11.50) Prothromb Time International Ratio 1.0 (0.9-1.1) Height (Feet): 5 Height (Inches): 10.00 Weight (Pounds): 230 Objective NAD clear breath sounds bilaterally without rhonchi or wheeze [id number] without MRG NABS nontender no HSM no CC noted edema nonfocal Zeb Kimble MD Apr 24, 2020 08:05
[2020-04-24] MEDS: Heparin 5000 units/ml inj SUBQ SCH ×2 (08:38→20:10)
--- NOTE | 2020-04-24 12:28 | General Progress Note ---
Subjective Allergies: Coded Allergies: No Known Allergies (Unverified , 04/20/20) Subjective no distress heme noted biopsy today Objective Last 24 Hour Vital Signs Date Time Temp Pulse Resp B/P (MAP) Pulse Ox O2 Delivery O2 Flow Rate FiO2 04/24/20 09:00 Room Air 04/24/20 08:00 98.0 88 16 136/81 (99) 95 04/24/20 04:00 98.3 85 20 141/74 (96) 94 04/24/20 00:00 98.5 83 20 137/78 (97) 96 04/23/20 21:00 Room Air 04/23/20 20:00 98.6 87 20 129/63 (85) 94 04/23/20 16:00 98.7 80 20 137/80 (99) 95 Intake and Output 04/23/20 04/24/20 19:00 07:00 Intake Total 700 ml 1000 ml Output Total 1200 ml 1300 ml Balance -500 ml -300 ml Intake Oral 700 ml IV Total 1000 ml Output Urine Total 1200 ml 1300 ml Laboratory Tests 04/24/20 04:48: White Blood Count 7.3, Red Blood Count 3.98L, Hemoglobin 12.7L, Hematocrit 34.5L , Mean Corpuscular Volume 87, Mean Corpuscular Hemoglobin 31.8H, Mean Corpuscular Hemoglobin Concent 36.7H, Red Cell Distribution Width 14.2, Platelet Count 197, Mean Platelet Volume 9.3, Neutrophils (%) (Auto) 67.4, Lymphocytes (%) (Auto) 14.8L, Monocytes (%) (Auto) 11.4H, Eosinophils (%) (Auto) 4.0H, Basophils (%) (Auto) 2.4H, Sodium Level 136, Potassium Level 3.4L, Chloride Level 103, Carbon Dioxide Level 30, Anion Gap 3L, Blood Urea Nitrogen 7, Creatinine 0.7, Estimat Glomerular Filtration Rate > 60, Glucose Level 94, Calcium Level 8.0L Height (Feet): 5 Height (Inches): 10.00 Weight (Pounds): 230 Objective WDWN NAD clear breath sounds bilaterally without rhonchi or wheeze [id number] without MRG NABS nontender no HSM no CCE nonfocal Assessment/Plan Assessment/Plan: IMPRESSION lung mass confirmed on CT leg edema seizure disorder fatigue/malaise hypertension acute renal failure COPD smoker elevated CK PLAN onc noted CT guided biopsy renal eval noted renal US negative respiratory care IV hydration maintain meds PT dc to snf in am with onc follow up impression, plan, and exam edited and reviewed in detail care discussed with Robert Amado MD Apr 24, 2020 12:28
--- NOTE | 2020-04-24 12:32 | NUR ---
CASE MANAGEMENT:REVIEW SI; LUNG MASS. LE EDEMA. AC RENAL FAILURE. CT GUIDED LUNG BIOPSY TODAY 98.6 88 20 141/74 94% ON RA K+ 3.4 IS;NaHCO2 IV PROTONIX PO QD IVF NS @ 100 ML/HR MED SURG STATUS DCP;PATIENT REPORTS HOMELESSNESS PLANNING FOR SNF PLACEMENT
--- NOTE | 2020-04-24 13:14 | NUR ---
NURSE NOTES: Patient off unit for procedure in stable condition.
--- NOTE | 2020-04-24 13:37 | Pre-Procedure Note/Attestation ---
Pre-Procedure Note/Attestation Complete Prior to Procedure Planned Procedure: right Procedure Narrative: lung mass bx under CT Indications for Procedure Pre-Operative Diagnosis: lung mass Attestation I attest that I discussed the nature of the procedure; its benefits; risks and complications; and alternatives (and the risks and benefits of such alternatives), prior to the procedure, with the patient (or the patient's legal passenger relations representative). I attest that, if there was a reasonable possibility of needing a blood tr ansfusion, the patient (or the patient's legal passenger relations representative) was given the [facility] standardized written summary, pursuant to the Chuckie Sonu Blood Safety Act ([place] Health and Safety Code # 1645, as amended). I attest that I re-evaluated the patient just prior to the surgery and that there has been no change in the patient's H&P, except as documented below: Alejandro Avalos MD Apr 24, 2020 13:37
--- NOTE | 2020-04-24 13:50 | Surgery Progress Note ---
Surgery Progress Note Subjective Symptoms: improved, tolerating diet, passing flatus Objective Last 24 Hour Vital Signs Date Time Temp Pulse Resp B/P (MAP) Pulse Ox O2 Delivery O2 Flow Rate FiO2 04/24/20 12:00 98.3 89 16 135/71 (92) 96 04/24/20 09:00 Room Air 04/24/20 08:00 98.0 88 16 136/81 (99) 95 04/24/20 04:00 98.3 85 20 141/74 (96) 94 04/24/20 00:00 98.5 83 20 137/78 (97) 96 04/23/20 21:00 Room Air 04/23/20 20:00 98.6 87 20 129/63 (85) 94 04/23/20 16:00 98.7 80 20 137/80 (99) 95 I&O Intake and Output 04/23/20 04/24/20 19:00 07:00 Intake Total 700 ml 1000 ml Output Total 1200 ml 1300 ml Balance -500 ml -300 ml Intake Oral 700 ml IV Total 1000 ml Output Urine Total 1200 ml 1300 ml Dressing: saturated Cardiovascular: RSR Respiratory: decreased breath sounds Abdomen: non-tender, present bowel sounds, non-distended Extremities: edema, no tenderness, no cyanosis Laboratory Tests Test 04/24/20 04:48 White Blood Count 7.3 K/UL (4.8-10.8) Red Blood Count 3.98 M/UL (4.70-6.10) L Hemoglobin 12.7 G/DL (14.2-18.0) L Hematocrit 34.5 % (42.0-52.0) L Mean Corpuscular Volume 87 FL (80-99) Mean Corpuscular Hemoglobin 31.8 PG (27.0-31.0) H Mean Corpuscular Hemoglobin Concent 36.7 G/DL (32.0-36.0) H Red Cell Distribution Width 14.2 % (11.6-14.8) Platelet Count 197 K/UL (150-450) Mean Platelet Volume 9.3 FL (6.5-10.1) Neutrophils (%) (Auto) 67.4 % (45.0-75.0) Lymphocytes (%) (Auto) 14.8 % (20.0-45.0) L Monocytes (%) (Auto) 11.4 % (1.0-10.0) H Eosinophils (%) (Auto) 4.0 % (0.0-3.0) H Basophils (%) (Auto) 2.4 % (0.0-2.0) H Sodium Level 136 MMOL/L (136-145) Potassium Level 3.4 MMOL/L (3.5-5.1) L Chloride Level 103 MMOL/L (98-107) Carbon Dioxide Level 30 MMOL/L (21-32) Anion Gap 3 mmol/L (5-15) L Blood Urea Nitrogen 7 mg/dL (7-18) Creatinine 0.7 MG/DL (0.55-1.30) Estimat Glomerular Filtration Rate > 60 mL/min (>60) Glucose Level 94 MG/DL (74-106) Calcium Level 8.0 MG/DL (8.5-10.1) L Plan Problems: (1) Rhabdomyolysis (2) Lung mass Assessment & Plan: pending CT Positive for 3.9 cm right upper lobe lung mass. This is concerning for neoplasm. Further evaluation with CT scan should be considered if this has not been worked up previously. In the posterolateral right lower lobe, there is a mass abutting the pleural surface which measures 3.8 x 3.6 cm orthogonal axial dimensions by 3.2 cm craniocaudad. This demonstrates slightly lobulated and slightly spiculated borders. There is some reticular opacity in the parenchyma surrounding this lesion. There are a few areas of centrilobular and anteroseptal emphysema in the upper lobes bilaterally. Bands of atelectasis and/or scarring are seen at the lung bases bilaterally. There is an area of groundglass opacity in the anteromedial right middle lobe. There are posterior dependent atelectatic changes on the left, and equivocally trace pleural fluid on the left. No right pleural effusion is demonstrated. There is some very faint hazy opacity in the periphery of the left upper lobe laterally at the level of the pulmonary hilum. The heart is upper limits normal in size. No pericardial effusion. There is a single prominent right paratracheal node which is round and measures approximately 16 mm in diameter. No definite mediastinal or hilar mass or adenopathy. Included thyroid is unremarkable. There is mild bilateral gynecomastia. No axillary or chest wall mass or adenopathy demonstrated. The bones demonstrate fractures of the anterolateral left fourth fifth and sixth ribs. Included upper bowel anatomy demonstrates cholelithiasis. The adrenals are unremarkable Impression: 3.8 x 3.6 x 3.2 cm right upper lobe mass, suspicious for primary pulmonary malignancy. Single prominent but not frankly enlarged paratracheal node, indeterminate for lymphadenopathy Acute appearing fractures of the left fourth fifth and sixth ribs. No evidence of pneumothorax Faint hazy opacity in the peripheral left upper lobe, nonspecific, could represent a small area of contusion related to the above Groundglass opacity in the anteromedial right middle lobe. This is nonspecific, could represent an area of active inflammation, chronic postinflammatory change, less likely neoplastic changes Basilar pulmonary atelectasis and scarring Bilateral upper lobe COPD changes Other findings as noted, including cholelithiasis, mild bilateral gynecomastia (3) Myalgia (4) Pain (5) Myositis (6) Bruising of penis Assessment & Plan: 64-year-old male identified to have bruising of the abdomen penis pelvis and blistering around his thighs hip. Patient states incontinence and unfortunately at times unable to get changed or care. Patient seems fairly unkept and has limited ability to provide history as he is a poor historian. Currently denies nausea vomiting or pain. Is unaware of the bruising on his abdomen unsure how you receive them. Patient noted to have bruising around his lower abdomen flank and open blisters around his pubic and penis area. In his thigh he has a unopened blister. Some erythema. Mainly consistent with an con associated dermatitis. No abscess. Labs noted. Lung CT as above. No acute surgical invention at this time Local wound care initiated. Recommended for patient to shower but patient states he is unable to walk currently. Will have physical therapy work with patient to help with ambulation. Once able to ambulate recommend shower. In the meantime discussed with nursing staff will plan to wash with cough washcloth and Hibiclens. Apply Thera honey or silver microbial to lesion around the pubis and penis. Optifoam to blister. Activity as tolerated. Diet as tolerated. Will follow with recommendations. Thank you participate in patient's care (7) AXEL (acute kidney injury) Feliz Woody Apr 24, 2020 13:50
--- NOTE | 2020-04-24 14:13 | Brief Operative Note ---
Immediate Post Operative Note Operative Note Pre-op Diagnosis: lung mass Procedure: R lung biopsy Post-op Diagnosis: same as pre-op Surgeon: Kayla AVALOS Anesthesia: local Specimen: yes - 3 18 G cores Complications: none Fluids: none Implant(s) used?: No Alejandro Avalos MD Apr 24, 2020 14:13
--- NOTE | 2020-04-24 17:07 | Diagnostic Imaging Report ---
Indication: Status post lung biopsy Technique: One view of the chest Comparison: 04/20/2020 Findings: Right upper lobe mass is again demonstrated. No pneumothorax. Lungs pleural spaces are clear. Normal heart size. Old healed rib fracture deformity is noted on the right Impression: No evidence of pneumothorax, status post biopsy of right upper lobe lung mass
--- NOTE | 2020-04-24 18:00 | Diagnostic Imaging Report ---
Indication: Right lung mass Technique: Prior imaging studies reviewed. Informed consent obtained prior to commencement of the procedure. Procedural timeout performed. Localizing spiral acquisitions obtained through the chest with the patient prone. Intended puncture site sterilely prepped and draped. Local anesthesia with 1% lidocaine. A 17-gauge guide needle was directed to the periphery of the lesion, CT images confirmed satisfactory needle position. A coaxially inserted 18-gauge needle was then used to obtain 3 18-gauge core specimens. Follow-up images were obtained, demonstrating no evidence of pneumothorax or significant hemorrhage. Gas bubbles within the lesion indicated successful tissue sampling. Total dose length product 579 mGycm. CTDIvol(s) 9 x 6 mGy. Radiation dose was minimized using automated exposure control Comparison: Reference made to chest CT dated 04/21/2020 Findings: Interstitial images document guide needle placement at the periphery of the target lesion. Completion images demonstrate no evidence of pneumothorax or significant hemorrhage Impression: Apparently successful biopsy of right upper lobe lung mass, as described. Final pathology pending The CT scanner at [facility] is accredited by the [employer] and the scans are performed using protocols designed to limit radiation exposure to as low as reasonably achievable to attain images of sufficient resolution adequate for diagnostic evaluation.
--- NOTE | 2020-04-24 18:51 | NUR ---
NURSE NOTES: Partial thickness loss on left buttock, right buttock and sacral. Left buttock 2.5cm (L) x 2cm(W). Wound base [place] and no drainage/Odor. Right buttock 4.5cm(L) x 3cm(W) with pink wound base. No drainage/Odor noted. Sacral 2cm(L)x0.5cm(W). Wound treatment done as protocol. Will continue to monitor.
--- NOTE | 2020-04-24 19:10 | NUR ---
NURSE HAND-OFF: Important Events on Shift: Lung Biopsy done Patient Status: Stable Diet: Regular Pending Orders: N/A Pending Results/Labs: CBC, BMP on 04/25 Pending MD notification:N/A Latest Vital Signs: Temperature 98.3 , Pulse 86 , B/P 145 /81 , Respiratory Rate 20 , O2 SAT 94 , Room Air, O2 Flow Rate 2.0 . Vital Sign Comment: Stable Latest Leger Fall Score: 35 Fall Risk: Medium Risk Safety Measures: Call light Within Reach, Bed Alarm Zone 1, Side Rails Side Rails x2, Bed position Low and Locked. Fall Precautions: Yellow Socks Yellow Gown Door Sign Patient Fall Education Report given to Zoya RAMON and Matthew RN. Patient in stable condition.
--- NOTE | 2020-04-24 19:15 | NUR ---
NURSE NOTES: Received report from TRISTEN Perez. Pt is calm in high fowlers position, bed locked and in lowest position, call light within reach, side rails up x2. Noted that wound is becoming worse, will continue to monitor and implement interventions to help wound healing. Wound nurse notified.
--- NOTE | 2020-04-24 19:38 | Diagnostic Imaging Report ---
EXAM: XR Chest, 1 View CLINICAL HISTORY: S/P LUNG BX TECHNIQUE: Frontal view of the chest. COMPARISON: Radiograph and biopsy CT from earlier today as well as CT of 04/21/20. FINDINGS/IMPRESSION: Redemonstrated right upper lobe mass. No pneumothorax after biopsy. Chronic and acute lung fracture deformities better seen on prior CTs. Hazy basilar opacities suggesting layering pleural effusions
[2020-04-25] VITALS: BP 136/77
[2020-04-25 03:45] VITALS: BP 144/92
[2020-04-25 05:54] LABS: BASOPHILS % (AUTO) 1.3 % (0.0-2.0); EOSINOPHILS % (AUTO) 4.6 % (0.0-3.0); HEMATOCRIT 34.7 % (42.0-52.0); HEMOGLOBIN 12.3 G/DL (14.2-18.0); LYMPHOCYTES % (AUTO) 14.6 % (20.0-45.0); MEAN CORPUSCULAR VOLUME 89 FL (80-99); MONOCYTES % (AUTO) 12.5 % (1.0-10.0); NEUTROPHILS % (AUTO) 66.9 % (45.0-75.0); PLATELET COUNT 220 K/UL (150-450); WHITE BLOOD COUNT 6.8 K/UL (4.8-10.8)
[2020-04-25 05:56] LABS: ANION GAP 4 mmol/L (5-15); BLOOD UREA NITROGEN 6 mg/dL (7-18); CALCIUM 8.1 MG/DL (8.5-10.1); CARBON DIOXIDE 30 MMOL/L (21-32); CHLORIDE 102 MMOL/L (98-107); CREATININE 0.6 MG/DL (0.55-1.30); POTASSIUM 3.6 MMOL/L (3.5-5.1); SODIUM 136 MMOL/L (136-145)
--- NOTE | 2020-04-25 06:25 | NUR ---
NURSE NOTES: Pulled pt up, cleaned pt, and place pillow under EMIR legs.
--- NOTE | 2020-04-25 06:59 | NUR ---
NURSE HAND-OFF: Important Events on Shift:Changed optifoam dressings Patient Status: calm Diet: regular Pending Orders: Pending Results/Labs: Pending MD notification: Latest Vital Signs: Temperature 98.2 , Pulse 79 , B/P 144 /92 , Respiratory Rate 18 , O2 SAT 98 , Room Air, O2 Flow Rate 2.0 . Vital Sign Comment: VSS Latest Leger Fall Score: 35 Fall Risk: Medium Risk Safety Measures: Call light Within Reach, Bed Alarm Zone 1, Side Rails Side Rails x2, Bed position Low and Locked. Fall Precautions: Yellow Socks Yellow Gown Door Sign Patient Fall Education Report given to TRISTEN Guevara.
--- NOTE | 2020-04-25 07:15 | NUR ---
NURSE NOTES: Report received from Zoya RN/Matthew RN, rounds made. Patient AOx4, calm. Respirations even/unlabored on RA. Denies SOB, pain, NV. NS at 100 ml/hr to RFA, site bruised/intact. Seizure pads in place. BLE +2 pitting edema, skin very dry, flaky, rough. Will assess/provide wound care to sacral and buttocks wounds with [facility] wound nurse today. Voids y/cl in urinal. Call light in reach, bed in lowest position, will continue to monitor.
[2020-04-25 08:00] VITALS: BP 139/75
[2020-04-25] MEDS: Heparin 5000 units/ml inj SUBQ SCH ×2 (09:21→20:51)
[2020-04-25 11:28] VITALS: BP 136/76
--- NOTE | 2020-04-25 14:22 | NUR ---
NURSE NOTES:Pt presented with MASD Buttocks with multiple partial thickness shearing. Moisture Intertrigo noted to lakisha cleft with surrounding erythematous and denuded skin with scattered Partial thickness wounds R and L gluteus. MASD abd panus, R and L groin areas resolving. Affected areas are pink, dry with peeling skin. Ulcer posterior R Tibia (L)1.8cm x (W)1.6cm. Base of wound is necrotic but dry. periwound is jayda pink with slight elevation in skin temp. Pt denied awareness of presence of wound. R and L heels are firm and easily blanchable. Tx.Plan:Apply Phytoplex Antifungal cream to abdominal folds ,R and L groin areas ,and Buttocks Twice Daily ( May apply with Triad Paste) Apply Triad Paste to Buttocks with each Incontinence care. Apply Betadine to Ulcer posterior R tibia. Cover with Optifoam drsg Daily and prn. Reposition at least every 2hours or as tolerated. Off-load heels with pillow.
--- NOTE | 2020-04-25 14:30 | NUR ---
NURSE NOTES: Per Yessi wound nurse: Sacral/Buttocks: Cleanse, pat dry, apply antifungal ointment (twice daily) and Triad cream (as often as needed) Left posterior ankle scab: Cleanse, pat dry, swab with Betadine, cover with optifoam Abdomen/Groin: Cleanse, pat dry, apply antifungal ointment (twice daily) Wound care/Skin care provided with Yessi. Bilateral feet dry flaky, cleansed, dry, vitamin A&D ointment/Lotion applied, elevated BLE due to pitting edema. Right upper back dressing (2x2 with tegederm) from lung biopsy noted, CDI.
[2020-04-25 16:00] VITALS: BP 149/84
--- NOTE | 2020-04-25 16:06 | NUR ---
*-*DISCHARGE PLANNING*-* PATIENT HAS BEEN REFERRED TO: GERHARD JAMES P: [phone] ROOM# 9.B S/W JODY, WHO STATED, WATING FOR [employer]PARTMENT OF PUBLIC HEALTH TO GIVE APPROVAL FOR PATIENT TO GO TO ROOM#9.A.
--- NOTE | 2020-04-25 18:16 | Surgery Progress Note ---
Surgery Progress Note Subjective Additional Comments biopsy done pending path no ptx after bx Objective Last 24 Hour Vital Signs Date Time Temp Pulse Resp B/P (MAP) Pulse Ox O2 Delivery O2 Flow Rate FiO2 04/25/20 16:00 98.4 81 18 149/84 (105) 95 04/25/20 11:28 98.1 81 18 136/76 (96) 96 04/25/20 09:00 Room Air 04/25/20 08:00 98.3 92 18 139/75 (96) 93 04/25/20 03:45 98.2 79 18 144/92 (109) 98 04/25/20 00:00 98.2 87 18 136/77 (96) 95 04/24/20 21:00 Room Air 04/24/20 20:00 98.0 89 18 147/85 (105) 95 I&O Intake and Output 04/24/20 04/25/20 19:00 07:00 Intake Total 600 ml 2500 ml Output Total 1500 ml Balance -900 ml 2500 ml Intake Oral 600 ml 1400 ml IV Total 1100 ml Output Urine Total 1500 ml # Voids 6 # Bowel Movements 1 Dressing: saturated Cardiovascular: RSR Respiratory: decreased breath sounds Abdomen: non-tender, present bowel sounds Extremities: no edema, no tenderness, no cyanosis Laboratory Tests Test 04/25/20 04:50 White Blood Count 6.8 K/UL (4.8-10.8) Red Blood Count 3.90 M/UL (4.70-6.10) L Hemoglobin 12.3 G/DL (14.2-18.0) L Hematocrit 34.7 % (42.0-52.0) L Mean Corpuscular Volume 89 FL (80-99) Mean Corpuscular Hemoglobin 31.4 PG (27.0-31.0) H Mean Corpuscular Hemoglobin Concent 35.3 G/DL (32.0-36.0) Red Cell Distribution Width 13.0 % (11.6-14.8) Platelet Count 220 K/UL (150-450) Mean Platelet Volume 8.2 FL (6.5-10.1) Neutrophils (%) (Auto) 66.9 % (45.0-75.0) Lymphocytes (%) (Auto) 14.6 % (20.0-45.0) L Monocytes (%) (Auto) 12.5 % (1.0-10.0) H Eosinophils (%) (Auto) 4.6 % (0.0-3.0) H Basophils (%) (Auto) 1.3 % (0.0-2.0) Sodium Level 136 MMOL/L (136-145) Potassium Level 3.6 MMOL/L (3.5-5.1) Chloride Level 102 MMOL/L (98-107) Carbon Dioxide Level 30 MMOL/L (21-32) Anion Gap 4 mmol/L (5-15) L Blood Urea Nitrogen 6 mg/dL (7-18) L Creatinine 0.6 MG/DL (0.55-1.30) Estimat Glomerular Filtration Rate > 60 mL/min (>60) Glucose Level 89 MG/DL (74-106) Calcium Level 8.1 MG/DL (8.5-10.1) L Plan Problems: (1) Rhabdomyolysis (2) Lung mass Assessment & Plan: pending CT Positive for 3.9 cm right upper lobe lung mass. This is concerning for neoplasm. Further evaluation with CT scan should be considered if this has not been worked up previously. In the posterolateral right lower lobe, there is a mass abutting the pleural surface which measures 3.8 x 3.6 cm orthogonal axial dimensions by 3.2 cm craniocaudad. This demonstrates slightly lobulated and slightly spiculated borders. There is some reticular opacity in the parenchyma surrounding this lesion. There are a few areas of centrilobular and anteroseptal emphysema in the upper lobes bilaterally. Bands of atelectasis and/or scarring are seen at the lung bases bilaterally. There is an area of groundglass opacity in the anteromedial right middle lobe. There are posterior dependent atelectatic changes on the left, and equivocally trace pleural fluid on the left. No right pleural effusion is demonstrated. There is some very faint hazy opacity in the periphery of the left upper lobe laterally at the level of the pulmonary hilum. The heart is upper limits normal in size. No pericardial effusion. There is a single prominent right paratracheal node which is round and measures approximately 16 mm in diameter. No definite mediastinal or hilar mass or adenopathy. Included thyroid is unremarkable. There is mild bilateral gynecomastia. No axillary or chest wall mass or adenopathy demonstrated. The bones demonstrate fractures of the anterolateral left fourth fifth and sixth ribs. Included upper bowel anatomy demonstrates cholelithiasis. The adrenals are unremarkable Impression: 3.8 x 3.6 x 3.2 cm right upper lobe mass, suspicious for primary pulmonary malignancy. Single prominent but not frankly enlarged paratracheal node, indeterminate for lymphadenopathy Acute appearing fractures of the left fourth fifth and sixth ribs. No evidence of pneumothorax Faint hazy opacity in the peripheral left upper lobe, nonspecific, could represent a small area of contusion related to the above Groundglass opacity in the anteromedial right middle lobe. This is nonspecific, could represent an area of active inflammation, chronic postinflammatory change, less likely neoplastic changes Basilar pulmonary atelectasis and scarring Bilateral upper lobe COPD changes Other findings as noted, including cholelithiasis, mild bilateral gynecomastia Prior imaging studies reviewed. Informed consent obtained prior to commencement of the procedure. Procedural timeout performed. Localizing spiral acquisitions obtained through the chest with the patient prone. Intended puncture site sterilely prepped and draped. Local anesthesia with 1% lidocaine. A 17- gauge guide needle was directed to the periphery of the lesion, CT images confirmed satisfactory needle position. A coaxially inserted 18-gauge needle was then used to obtain 3 18-gauge core specimens. Follow-up images were obtained, demonstrating no evidence of pneumothorax or significant hemorrhage. Gas bubbles within the lesion indicated successful tissue sampling. Total dose length product 579 mGycm. CTDIvol(s) 9 x 6 mGy. Radiation dose was minimized using automated exposure control Comparison: Reference made to chest CT dated 04/21/2020 Findings: Interstitial images document guide needle placement at the periphery of the target lesion. Completion images demonstrate no evidence of pneumothorax or significant hemorrhage Impression: Apparently successful biopsy of right upper lobe lung mass, as described. Final pathology pending (3) Myalgia (4) Pain (5) Myositis (6) Bruising of penis Assessment & Plan: 64-year-old male identified to have bruising of the abdomen penis pelvis and blistering around his thighs hip. Patient states incontinence and unfortunately at times unable to get changed or care. Patient seems fairly unkept and has limited ability to provide history as he is a poor historian. Currently denies nausea vomiting or pain. Is unaware of the bruising on his abdomen unsure how you receive them. Patient noted to have bruising around his lower abdomen flank and open blisters around his pubic and penis area. In his thigh he has a unopened blister. Some erythema. Mainly consistent with an con associated dermatitis. No abscess. Labs noted. Lung CT as above. No acute surgical invention at this time Local wound care initiated. Recommended for patient to shower but patient states he is unable to walk currently. Will have physical therapy work with patient to help with ambulation. Once able to ambulate recommend shower. In the meantime discussed with nursing staff will plan to wash with cough washcloth and Hibiclens. Apply Thera honey or silver microbial to lesion around the pubis and penis. Optifoam to blister. Activity as tolerated. Diet as tolerated. Will follow with recommendations. Thank you participate in patient's care (7) AXEL (acute kidney injury) Feliz Woody Apr 25, 2020 18:16
--- NOTE | 2020-04-25 18:54 | General Progress Note ---
Subjective Allergies: Coded Allergies: No Known Allergies (Unverified , 04/20/20) Subjective no distress heme noted biopsy completed Objective Last 24 Hour Vital Signs Date Time Temp Pulse Resp B/P (MAP) Pulse Ox O2 Delivery O2 Flow Rate FiO2 04/25/20 16:00 98.4 81 18 149/84 (105) 95 04/25/20 11:28 98.1 81 18 136/76 (96) 96 04/25/20 09:00 Room Air 04/25/20 08:00 98.3 92 18 139/75 (96) 93 04/25/20 03:45 98.2 79 18 144/92 (109) 98 04/25/20 00:00 98.2 87 18 136/77 (96) 95 04/24/20 21:00 Room Air 04/24/20 20:00 98.0 89 18 147/85 (105) 95 Intake and Output 04/24/20 04/25/20 19:00 07:00 Intake Total 600 ml 2500 ml Output Total 1500 ml Balance -900 ml 2500 ml Intake Oral 600 ml 1400 ml IV Total 1100 ml Output Urine Total 1500 ml # Voids 6 # Bowel Movements 1 Laboratory Tests 04/25/20 04:50: White Blood Count 6.8, Red Blood Count 3.90L, Hemoglobin 12.3L, Hematocrit 34.7L , Mean Corpuscular Volume 89, Mean Corpuscular Hemoglobin 31.4H, Mean C orpuscular Hemoglobin Concent 35.3, Red Cell Distribution Width 13.0, Platelet Count 220, Mean Platelet Volume 8.2, Neutrophils (%) (Auto) 66.9, Lymphocytes (%) (Auto) 14.6L, Monocytes (%) (Auto) 12.5H, Eosinophils (%) (Auto) 4.6H, Basophils (%) (Auto) 1.3, Sodium Level 136, Potassium Level 3.6, Chloride Level 102, Carbon Dioxide Level 30, Anion Gap 4L, Blood Urea Nitrogen 6L, Creatinine 0.6, Estimat Glomerular Filtration Rate > 60, Glucose Level 89, Calcium Level 8.1L Height (Feet): 5 Height (Inches): 10.00 Weight (Pounds): 230 Objective WDWN NAD clear breath sounds bilaterally without rhonchi or wheeze [id number] without MRG NABS nontender no HSM no CCE nonfocal Assessment/Plan Assessment/Plan: IMPRESSION lung mass confirmed on CT leg edema seizure disorder fatigue/malaise hypertension acute renal failure COPD smoker elevated CK PLAN onc noted CT guided biopsy done respiratory care dc hydration maintain meds PT dc to snf in am with onc follow up once biopsy available impression, plan, and exam edited and reviewed in detail care discussed with Robert Amado MD Apr 25, 2020 18:54
--- NOTE | 2020-04-25 19:10 | NUR ---
NURSE NOTES: Received report from TRISTEN Guevara. Pt calm and laying down in bed. VSS, call light within reach, bed locked and in lowest position, side rails up x2. Plan to DC patient to [facility], awaiting for approval. Will continue to monitor.
--- NOTE | 2020-04-25 19:23 | NUR ---
NURSE HAND-OFF: Important Events on Shift:DC planning to [facility] (awaiting on approval from [facility]), IVF DC, Wound Nurse assessment done (see note), BMx2 Patient Status: stable Diet: Regular Pending Orders: Discharge Pending Results/Labs:none Pending MD notification:none Latest Vital Signs: Temperature 98.4 , Pulse 81 , B/P 149 /84 , Respiratory Rate 18 , O2 SAT 95 , Room Air, O2 Flow Rate 2.0 . Vital Sign Comment: none Latest Leger Fall Score: 20 Fall Risk: Low Risk Safety Measures: Call light Within Reach, Bed Alarm Zone 1, Side Rails Side Rails x2, Bed position Low and Locked. Fall Precautions: Yellow Socks Yellow Gown Door Sign Patient Fall Education Report given to Matthew RAMON/Zoya RAMON.
[2020-04-25 20:00] VITALS: BP 144/78
[2020-04-26] VITALS (7 sets, daily range): BP systolic 132–150; BP diastolic 71–90
--- NOTE | 2020-04-26 06:30 | NUR ---
NURSE NOTES: Attended to wounds per wound consult order. Optifoams placed, antifungal ointment used along with triad cream. Pt tolerated well.
--- NOTE | 2020-04-26 06:34 | General Progress Note ---
Subjective Allergies: Coded Allergies: No Known Allergies (Unverified , 04/20/20) Subjective no distress heme noted biopsy completed Objective Last 24 Hour Vital Signs Date Time Temp Pulse Resp B/P (MAP) Pulse Ox O2 Delivery O2 Flow Rate FiO2 04/26/20 04:00 98.0 78 16 150/87 (108) 95 04/26/20 00:00 98.1 79 18 132/90 (104) 97 04/25/20 20:00 98.3 77 18 144/78 (100) 96 04/25/20 16:00 98.4 81 18 149/84 (105) 95 04/25/20 11:28 98.1 81 18 136/76 (96) 96 04/25/20 09:00 Room Air 04/25/20 08:00 98.3 92 18 139/75 (96) 93 Intake and Output 04/25/20 04/26/20 19:00 07:00 Intake Total 2000 ml Output Total 3000 ml Balance -1000 ml Intake Oral 1000 ml IV Total 1000 ml Output Urine Total 3000 ml # Voids 11 # Bowel Movements 3 Height (Feet): 5 Height (Inches): 10.00 Weight (Pounds): 230 Objective WDWN NAD clear breath sounds bilaterally without rhonchi or wheeze [id number] without MRG NABS nontender no HSM no CCE nonfocal Assessment/Plan Assessment/Plan: IMPRESSION lung mass confirmed on CT leg edema seizure disorder fatigue/malaise hypertension acute renal failure COPD smoker elevated CK PLAN onc noted CT guided biopsy done respiratory care dc hydration maintain meds PT dc to snf today off iv fluids impression, plan, and exam edited and reviewed in detail care discussed with Robert Amado MD Apr 26, 2020 06:34
--- NOTE | 2020-04-26 07:13 | NUR ---
NURSE NOTES: Report received from Zoya RN/Matthew RN, rounds made. Patient AOx4, calm. Respirations even/unlabored on RA. Denies SOB, pain, NV. RFA, site bruised/intact/saline lock. Seizure pads in place. BLE +2 pitting edema, skin very dry, flaky, rough. Will assess/provide wound care to sacral and buttocks wounds as instructed by [facility] wound nurse today. Voids y/cl in urinal. Call light in reach, bed in lowest position, will continue to monitor.
--- NOTE | 2020-04-26 07:15 | NUR ---
NURSE HAND-OFF: Important Events on Shift: Attended to wounds per wound consult orders Patient Status: calm Diet: regular Pending Orders: Pending Results/Labs: Pending MD notification: Latest Vital Signs: Temperature 98.0 , Pulse 78 , B/P 150 /87 , Respiratory Rate 16 , O2 SAT 95 , Room Air, O2 Flow Rate 2.0 . Vital Sign Comment: VSS Latest Leger Fall Score: 35 Fall Risk: Medium Risk Safety Measures: Call light Within Reach, Bed Alarm Zone 1, Side Rails Side Rails x2, Bed position Low and Locked. Fall Precautions: Yellow Socks Yellow Gown Door Sign Patient Fall Education Report given to TRISTEN Guevara.
[2020-04-26] MEDS: Heparin 5000 units/ml inj SUBQ SCH ×2 (08:33→21:59)
--- NOTE | 2020-04-26 09:00 | Hematology/Onc Progress Note ---
Assessment/Plan Assessment/Plan IMPRESSION # Lung mass on cxr right upper lobe lung mass. This is concerning for neoplasm. --> does have a extensive hx of smoking --> Ct of the chest has been ordered and reviewed-> 3.8 x 3.6 x 3.2 cm right upper lobe mass, suspicious for primary pulmonary malignancy. --> consider a biopsy if mass noted on ct (has been ordered) # Anemia of chronic disease --> hgb 12->12.3 --> no e/o gi bleed # Leg edema --> r/o chf # Seizure disorder # Fatigue/malaise # Hypertension # Acute renal failure # COPD # elevated CK # Dvt ppx heparin sq Appreciate consultation and barry RN Subjective HEENT: Denies: no symptoms, eye pain, blurred vision, tearing, double vision, ear pain, ear discharge, nose pain, nose congestion, throat pain, throat swelling, mouth pain, mouth swelling, other Cardiovascular: Denies: no symptoms, chest pain, edema, irregular heart rate, lightheadedness, palpitations, syncope, other Respiratory: Denies: no symptoms, cough, shortness of breath, SOB with excertion, SOB at rest, sputum, wheezing, other Gastrointestinal/Abdominal: Denies: no symptoms, abdomen distended, abdominal pain, black stools, tarry stools, blood in stool, constipated, diarrhea, difficulty swallowing, nausea, poor appetite, poor fluid intake, rectal bleeding, vomiting, other Neurologic/Psychiatric: Denies: no symptoms, anxiety, depressed, emotional pro blems, headache, numbness, paresthesia, pre-existing deficit, seizure, tingling, tremors, weakness, other Endocrine: Denies: no symptoms, excessive sweating, flushing, intolerance to cold, intolerance to heat, increased hunger, increased thirst, increased urine, unexplained weight gain, unexplained weight loss, other Hematologic/Lymphatic: Denies: no symptoms, anemia, easy bleeding, easy bruising, adenopathy, other Allergies: Coded Allergies: No Known Allergies (Unverified , 04/20/20) Subjective 04/22 no major changes, has not had ct chest biopsy yet done 04/23 no major events, barry rn again in am 04/24 meds noted, no bleeding,zeenat mancuso rn, no major events seen, biopsy has been ordered for today 04/26 labs are noted, no bleeding, meds reviewed, no night sweats Objective Objective Current Medications Medications (Trade) Dose Ordered Sig/Dao Route PRN Reason Start Time Stop Time Status Last Admin Dose Admin Acetaminophen (Tylenol) 650 mg Q4H PRN ORAL MILD Pain(1-3) & fever>101.4 04/20/20 21:30 05/20/20 21:29 04/22/20 16:42 Al Hydroxide/Mg Hydroxide (Mylanta) 30 ml Q4HR PRN ORAL GERD 04/20/20 21:30 05/20/20 21:29 Heparin Sodium (Porcine) (Heparin 5000 units/ml) 5,000 units EVERY 12 HOURS SUBQ 04/21/20 09:00 06/05/20 08:59 04/26/20 08:33 Pantoprazole (Protonix) 40 mg DAILY ORAL 04/21/20 09:00 05/21/20 08:59 04/26/20 08:29 Last 24 Hour Vital Signs Date Time Temp Pulse Resp B/P (MAP) Pulse Ox O2 Delivery O2 Flow Rate FiO2 04/26/20 08:23 Room Air 04/26/20 08:00 98.1 83 16 135/80 (98) 94 04/26/20 04:00 98.0 78 16 150/87 (108) 95 04/26/20 00:00 98.1 79 18 132/90 (104) 97 04/25/20 21:00 Room Air 04/25/20 20:00 98.3 77 18 144/78 (100) 96 04/25/20 16:00 98.4 81 18 149/84 (105) 95 04/25/20 11:28 98.1 81 18 136/76 (96) 96 04/25/20 09:00 Room Air 04/25/20 08:00 98.3 92 18 139/75 (96) 93 04/25/20 03:45 98.2 79 18 144/92 (109) 98 04/25/20 00:00 98.2 87 18 136/77 (96) 95 04/24/20 21:00 Room Air 04/24/20 20:00 98.0 89 18 147/85 (105) 95 04/24/20 16:00 98.3 86 20 145/81 (102) 94 04/24/20 13:55 98.3 88 18 146/78 (100) 97 04/24/20 13:50 98.3 88 18 140/76 (97) 98 04/24/20 13:27 83 20 2.0 04/24/20 12:00 98.3 89 16 135/71 (92) 96 04/24/20 09:00 Room Air Intake and Output 04/25/20 04/26/20 19:00 07:00 Intake Total 2000 ml 1300 ml Output Total 3000 ml Balance -1000 ml 1300 ml Intake Oral 1000 ml 1300 ml IV Total 1000 ml Output Urine Total 3000 ml # Voids 11 6 # Bowel Movements 3 Labs Test 04/24/20 04:48 04/25/20 04:50 White Blood Count 7.3 K/UL (4.8-10.8) 6.8 K/UL (4.8-10.8) Red Blood Count 3.98 M/UL (4.70-6.10) 3.90 M/UL (4.70-6.10) Hemoglobin 12.7 G/DL (14.2-18.0) 12.3 G/DL (14.2-18.0) Hematocrit 34.5 % (42.0-52.0) 34.7 % (42.0-52.0) Mean Corpuscular Volume 87 FL (80-99) 89 FL (80-99) Mean Corpuscular Hemoglobin 31.8 PG (27.0-31.0) 31.4 PG (27.0-31.0) Mean Corpuscular Hemoglobin Concent 36.7 G/DL (32.0-36.0) 35.3 G/DL (32.0-36.0) Red Cell Distribution Width 14.2 % (11.6-14.8) 13.0 % (11.6-14.8) Platelet Count 197 K/UL (150-450) 220 K/UL (150-450) Mean Platelet Volume 9.3 FL (6.5-10.1) 8.2 FL (6.5-10.1) Neutrophils (%) (Auto) 67.4 % (45.0-75.0) 66.9 % (45.0-75.0) Lymphocytes (%) (Auto) 14.8 % (20.0-45.0) 14.6 % (20.0-45.0) Monocytes (%) (Auto) 11.4 % (1.0-10.0) 12.5 % (1.0-10.0) Eosinophils (%) (Auto) 4.0 % (0.0-3.0) 4.6 % (0.0-3.0) Basophils (%) (Auto) 2.4 % (0.0-2.0) 1.3 % (0.0-2.0) Sodium Level 136 MMOL/L (136-145) 136 MMOL/L (136-145) Potassium Level 3.4 MMOL/L (3.5-5.1) 3.6 MMOL/L (3.5-5.1) Chloride Level 103 MMOL/L (98-107) 102 MMOL/L (98-107) Carbon Dioxide Level 30 MMOL/L (21-32) 30 MMOL/L (21-32) Anion Gap 3 mmol/L (5-15) 4 mmol/L (5-15) Blood Urea Nitrogen 7 mg/dL (7-18) 6 mg/dL (7-18) Creatinine 0.7 MG/DL (0.55-1.30) 0.6 MG/DL (0.55-1.30) Estimat Glomerular Filtration Rate > 60 mL/min (>60) > 60 mL/min (>60) Glucose Level 94 MG/DL (74-106) 89 MG/DL (74-106) Calcium Level 8.0 MG/DL (8.5-10.1) 8.1 MG/DL (8.5-10.1) Height (Feet): 5 Height (Inches): 10.00 Weight (Pounds): 230 Objective NAD clear breath sounds bilaterally without rhonchi or wheeze [id number] without MRG NABS nontender no HSM no CC noted edema nonfocal Zeb Kimble MD Apr 26, 2020 09:00
--- NOTE | 2020-04-26 11:15 | Surgery Progress Note ---
Surgery Progress Note Subjective Additional Comments pending pathology respiratory stable no n/v comfortable tolerating diet Objective Last 24 Hour Vital Signs Date Time Temp Pulse Resp B/P (MAP) Pulse Ox O2 Delivery O2 Flow Rate FiO2 04/26/20 08:23 Room Air 04/26/20 08:00 98.1 83 16 135/80 (98) 94 04/26/20 04:00 98.0 78 16 150/87 (108) 95 04/26/20 00:00 98.1 79 18 132/90 (104) 97 04/25/20 21:00 Room Air 04/25/20 20:00 98.3 77 18 144/78 (100) 96 04/25/20 16:00 98.4 81 18 149/84 (105) 95 04/25/20 11:28 98.1 81 18 136/76 (96) 96 I&O Intake and Output 04/25/20 04/26/20 19:00 07:00 Intake Total 2000 ml 1300 ml Output Total 3000 ml Balance -1000 ml 1300 ml Intake Oral 1000 ml 1300 ml IV Total 1000 ml Output Urine Total 3000 ml # Voids 11 6 # Bowel Movements 3 Cardiovascular: RSR Respiratory: clear Abdomen: soft, non-tender, present bowel sounds, non-distended Extremities: no edema, no tenderness, no cyanosis Plan Problems: (1) Rhabdomyolysis (2) Lung mass Assessment & Plan: pending CT Positive for 3.9 cm right upper lobe lung mass. This is concerning for neoplasm. Further evaluation with CT scan should be considered if this has not been worked up previously. In the posterolateral right lower lobe, there is a mass abutting the pleural surface which measures 3.8 x 3.6 cm orthogonal axial dimensions by 3.2 cm craniocaudad. This demonstrates slightly lobulated and slightly spiculated borders. There is some reticular opacity in the parenchyma surrounding this lesion. There are a few areas of centrilobular and anteroseptal emphysema in the upper lobes bilaterally. Bands of atelectasis and/or scarring are seen at the lung bases bilaterally. There is an area of groundglass opacity in the anteromedial right middle lobe. There are posterior dependent atelectatic changes on the left, and equivocally trace pleural fluid on the left. No right pleural effusion is demonstrated. There is some very faint hazy opacity in the periphery of the left upper lobe laterally at the level of the pulmonary hilum. The heart is upper limits normal in size. No pericardial effusion. There is a single prominent right paratracheal node which is round and measures approximately 16 m m in diameter. No definite mediastinal or hilar mass or adenopathy. Included thyroid is unremarkable. There is mild bilateral gynecomastia. No axillary or chest wall mass or adenopathy demonstrated. The bones demonstrate fractures of the anterolateral left fourth fifth and sixth ribs. Included upper bowel anatomy demonstrates cholelithiasis. The adrenals are unremarkable Impression: 3.8 x 3.6 x 3.2 cm right upper lobe mass, suspicious for primary pulmonary malignancy. Single prominent but not frankly enlarged paratracheal node, indeterminate for lymphadenopathy Acute appearing fractures of the left fourth fifth and sixth ribs. No evidence of pneumothorax Faint hazy opacity in the peripheral left upper lobe, nonspecific, could represent a small area of contusion related to the above Groundglass opacity in the anteromedial right middle lobe. This is nonspecific, could represent an area of active inflammation, chronic postinflammatory change, less likely neoplastic changes Basilar pulmonary atelectasis and scarring Bilateral upper lobe COPD changes Other findings as noted, including cholelithiasis, mild bilateral gynecomastia Prior imaging studies reviewed. Informed consent obtained prior to commencement of the procedure. Procedural timeout performed. Localizing spiral acquisitions obtained through the chest with the patient prone. Intended puncture site sterilely prepped and draped. Local anesthesia with 1% lidocaine. A 17- gauge guide needle was directed to the periphery of the lesion, CT images confirmed satisfactory needle position. A coaxially inserted 18-gauge needle was then used to obtain 3 18-gauge core specimens. Follow-up images were obtained, demonstrating no evidence of pneumothorax or significant hemorrhage. Gas bubbles within the lesion indicated successful tissue sampling. Total dose length product 579 mGycm. CTDIvol(s) 9 x 6 mGy. Radiation dose was minimized using automated exposure control Comparison: Reference made to chest CT dated 04/21/2020 Findings: Interstitial images document guide needle placement at the periphery of the target lesion. Completion images demonstrate no evidence of pneumothorax or significant hemorrhage Impression: Apparently successful biopsy of right upper lobe lung mass, as described. Final pathology pending (3) Myalgia (4) Pain (5) Myositis (6) Bruising of penis Assessment & Plan: 64-year-old male identified to have bruising of the abdomen penis pelvis and blistering around his thighs hip. Patient states incontinence and unfortunately at times unable to get changed or care. Patient seems fairly unkept and has limited ability to provide history as he is a poor historian. Currently denies nausea vomiting or pain. Is unaware of the bruising on his abdomen unsure how you receive them. Patient noted to have bruising around his lower abdomen flank and open blisters around his pubic and penis area. In his thigh he has a unopened blister. Some erythema. Mainly consistent with an con associated dermatitis. No abscess. Labs noted. Lung CT as above. No acute surgical invention at this time Local wound care initiated. Recommended for patient to shower but patient states he is unable to walk currently. Will have physical therapy work with patient to help with ambulation. Once able to ambulate recommend shower. In the meantime discussed with nursing staff will plan to wash with cough washcloth and Hibiclens. Apply Thera honey or silver microbial to lesion around the pubis and penis. Optifoam to blister. Activity as tolerated. Diet as tolerated. Will follow with recommendations. Thank you participate in patient's care (7) AXEL (acute kidney injury) Feliz Woody Apr 26, 2020 11:15
--- NOTE | 2020-04-26 17:58 | NUR ---
NURSE NOTES: Dr. Leyva notified of BP trending high 140-150 over 70-90, also patient requesting Ibuprofen (over already ordered Tylenol), orders received for Clonidine 0.1 mg PO every 4 hours PRN for SBP >150 and Ibuprofen 600 mg Q6 PRN pain. Will follow as ordered. Updated patient, verbalized understanding. Addendum: 04/26/20 at 1802 by Erika Clark RN Patient complains of generalized pain 11/14.
--- NOTE | 2020-04-26 19:25 | NUR ---
NURSE HAND-OFF: Important Events on Shift:New order for Ibuprofen (generalized pain) and Clonidine (BP trending high) Patient Status: stable Diet: regular Pending Orders: Discharge (transfer to [facility] room 9A/B, awaiting on public health approval Pending Results/Labs:none Pending MD notification:+2-3 pitting edema to BLE Latest Vital Signs: Temperature 98.6 , Pulse 82 , B/P 148 /90 , Respiratory Rate 16 , O2 SAT 94 , Room Air, O2 Flow Rate 2.0 . Vital Sign Comment: monitor BP Latest Leger Fall Score: 35 Fall Risk: Medium Risk Safety Measures: Call light Within Reach, Bed Alarm Zone 1, Side Rails Side Rails x2, Bed position Low and Locked. Fall Precautions: Yellow Socks Yellow Gown Door Sign Patient Fall Education Report given to Gogo RAMON.
--- NOTE | 2020-04-26 19:45 | NUR ---
NURSE NOTES: Message left for Dr. Leyva regarding +2-3 pitting edema to BLE/feet and pain to touch to BLE, current diet (regular diet, to switch to OFELIA). Endorsed to Gogo RAMON.
--- NOTE | 2020-04-26 21:35 | NUR ---
NURSING NOTE: Received report from TRISTEN James. Rounds made. Pt in bed, A/OX4, denies pain currently. No outward s/s of distress noted. Breathing pattern is even and unlabored on RA. IV R FA intact, hep locked. Blister rash on abdomen and upper thighs noted. As well as buttocks. Tx will be applied according to order. All due medications will be administered. Bed at lowest level. Call light within reach. Pt will continue to be monitored.
--- NOTE | 2020-04-26 23:49 | Diagnostic Imaging Report ---
EXAM: US Duplex Bilateral Lower Extremities Veins CLINICAL HISTORY: LYRICLL TECHNIQUE: Real-time duplex ultrasound scan of the bilateral lower extremity veins integrating B-mode two-dimensional vascular structure, Doppler spectral analysis, color flow Doppler imaging and compression. COMPARISON: No relevant prior studies available. FINDINGS: Right deep veins: Unremarkable as visualized. Normal compression and normal response to augmentation. Right superficial veins: Unremarkable as visualized. Left deep veins: Unremarkable as visualized. Normal compression and normal response to augmentation. Left superficial veins: Unremarkable as visualized. Soft tissues: No acute findings. IMPRESSION: No DVT.
[2020-04-27 04:00] VITALS: BP 141/64
--- NOTE | 2020-04-27 06:56 | Hematology/Onc Progress Note ---
Assessment/Plan Assessment/Plan IMPRESSION # Lung mass on cxr right upper lobe lung mass. This is concerning for neoplasm. --> does have a extensive hx of smoking --> Ct of the chest has been ordered and reviewed-> 3.8 x 3.6 x 3.2 cm right upper lobe mass, suspicious for primary pulmonary malignancy. --> consider a biopsy if mass noted on ct (has been ordered) # Anemia of chronic disease --> hgb 12->12.3 --> no e/o gi bleed # Leg edema --> r/o chf # Seizure disorder # Fatigue/malaise # Hypertension # Acute renal failure # COPD # elevated CK # Dvt ppx heparin sq Appreciate consultation and barry RN Subjective HEENT: Denies: no symptoms, eye pain, blurred vision, tearing, double vision, ear pain, ear discharge, nose pain, nose congestion, throat pain, throat swelling, mouth pain, mouth swelling, other Cardiovascular: Denies: no symptoms, chest pain, edema, irregular heart rate, lightheadedness, palpitations, syncope, other Respiratory: Denies: no symptoms, cough, shortness of breath, SOB with excertion, SOB at rest, sputum, wheezing, other Gastrointestinal/Abdominal: Denies: no symptoms, abdomen distended, abdominal pain, black stools, tarry stools, blood in stool, constipated, diarrhea, difficulty swallowing, nausea, poor appetite, poor fluid intake, rectal bleeding, vomiting, other Genitourinary: Denies: no symptoms, burning, discharge, frequency, flank pain, hematuria, incontinence, pain, urgency, other Neurologic/Psychiatric: Denies: no symptoms, anxiety, depressed, emotional problems, headache, numbness, paresthesia, pre-existing deficit, seizure, tingling, tremors, weakness, other Endocrine: Denies: no symptoms, excessive sweating, flushing, intolerance to cold, intolerance to heat, increased hunger, increased thirst, increased urine, unexplained weight gain, unexplained weight loss, other Allergies: Coded Allergies: No Known Allergies (Unverified , 04/20/20) Subjective 04/22 no major changes, has not had ct chest biopsy yet done 04/23 no major events, barry rn again in am 04/24 meds noted, no bleeding,d bartolome rn, no major events seen, biopsy has been ordered for today 04/26 labs are noted, no bleeding, meds reviewed, no night sweats 04/27 is still pending path report, labs noted, no bleeding Objective Objective Current Medications Medications (Trade) Dose Ordered Sig/Dao Route PRN Reason Start Time Stop Time Status Last Admin Dose Admin Acetaminophen (Tylenol) 650 mg Q4H PRN ORAL MILD Pain(1-3) & fever>101.4 04/20/20 21:30 05/20/20 21:29 04/22/20 16:42 Al Hydroxide/Mg Hydroxide (Mylanta) 30 ml Q4HR PRN ORAL GERD 04/20/20 21:30 05/20/20 21:29 Clonidine HCl (Catapres Tab) 0.1 mg Q4H PRN ORAL High Blood Pressure 04/26/20 17:00 07/25/20 16:59 Heparin Sodium (Porcine) (Heparin 5000 units/ml) 5,000 units EVERY 12 HOURS SUBQ 04/21/20 09:00 06/05/20 08:59 04/26/20 21:59 Ibuprofen (Motrin) 600 mg Q6H PRN ORAL For Pain 04/26/20 17:00 05/26/20 16:59 04/26/20 18:03 Pantoprazole (Protonix) 40 mg DAILY ORAL 04/21/20 09:00 05/21/20 08:59 04/26/20 08:29 Last 24 Hour Vital Signs Date Time Temp Pulse Resp B/P (MAP) Pulse Ox O2 Delivery O2 Flow Rate FiO2 04/27/20 04:00 98.4 80 17 141/64 (89) 92 04/26/20 21:00 Room Air 04/26/20 20:00 98.5 76 136/71 (92) 04/26/20 17:42 82 148/90 (109) 04/26/20 16:00 98.6 84 16 140/80 (100) 94 04/26/20 12:00 98.2 78 16 146/80 (102) 95 04/26/20 08:23 Room Air 04/26/20 08:00 98.1 83 16 135/80 (98) 94 04/26/20 04:00 98.0 78 16 150/87 (108) 95 04/26/20 00:00 98.1 79 18 132/90 (104) 97 04/25/20 21:00 Room Air 04/25/20 20:00 98.3 77 18 144/78 (100) 96 04/25/20 16:00 98.4 81 18 149/84 (105) 95 04/25/20 11:28 98.1 81 18 136/76 (96) 96 04/25/20 09:00 Room Air 04/25/20 08:00 98.3 92 18 139/75 (96) 93 Intake and Output 04/26/20 04/27/20 19:00 07:00 Intake Total 1500 ml 600 ml Output Total 2500 ml Balance 1500 ml -1900 ml Intake Oral 1500 ml 600 ml Output Urine Total 2500 ml # Voids 8 7 Labs Test 04/25/20 04:50 White Blood Count 6.8 K/UL (4.8-10.8) Red Blood Count 3.90 M/UL (4.70-6.10) Hemoglobin 12.3 G/DL (14.2-18.0) Hematocrit 34.7 % (42.0-52.0) Mean Corpuscular Volume 89 FL (80-99) Mean Corpuscular Hemoglobin 31.4 PG (27.0-31.0) Mean Corpuscular Hemoglobin Concent 35.3 G/DL (32.0-36.0) Red Cell Distribution Width 13.0 % (11.6-14.8) Platelet Count 220 K/UL (150-450) Mean Platelet Volume 8.2 FL (6.5-10.1) Neutrophils (%) (Auto) 66.9 % (45.0-75.0) Lymphocytes (%) (Auto) 14.6 % (20.0-45.0) Monocytes (%) (Auto) 12.5 % (1.0-10.0) Eosinophils (%) (Auto) 4.6 % (0.0-3.0) Basophils (%) (Auto) 1.3 % (0.0-2.0) Sodium Level 136 MMOL/L (136-145) Potassium Level 3.6 MMOL/L (3.5-5.1) Chloride Level 102 MMOL/L (98-107) Carbon Dioxide Level 30 MMOL/L (21-32) Anion Gap 4 mmol/L (5-15) Blood Urea Nitrogen 6 mg/dL (7-18) Creatinine 0.6 MG/DL (0.55-1.30) Estimat Glomerular Filtration Rate > 60 mL/min (>60) Glucose Level 89 MG/DL (74-106) Calcium Level 8.1 MG/DL (8.5-10.1) Height (Feet): 5 Height (Inches): 10.00 Weight (Pounds): 230 Objective NAD clear breath sounds bilaterally without rhonchi or wheeze [id number] without MRG NABS nontender no HSM no CC noted edema nonfocal Zeb Kimble MD Apr 27, 2020 06:56
--- NOTE | 2020-04-27 07:55 | NUR ---
NURSE HAND-OFF: Important Events on Shift:[NONE] Patient Status: [STABLE] Diet: [REGULAR] Pending Orders: [NONE] Pending Results/Labs:[NONE] Pending MD notification:[NONE] Latest Vital Signs: Temperature 98.4 , Pulse 80 , B/P 141 /64 , Respiratory Rate 17 , O2 SAT 92 , Room Air, O2 Flow Rate 2.0 . Vital Sign Comment: [WNL] Latest Leger Fall Score: 35 Fall Risk: Medium Risk Safety Measures: Call light Within Reach, Bed Alarm Zone 1, Side Rails Side Rails x2, Bed position Low and Locked. Fall Precautions: Yellow Socks Yellow Gown Door Sign Patient Fall Education Report given to [TRISTEN ROSALES].
--- NOTE | 2020-04-27 07:56 | NUR ---
NURSE NOTES: Received report from Gogo RAMON. Patient is awake and oriented, in no distress, reporting no pain. Fall and seizure precautions maintained, side rails padded and upx3, bed low and locked, call light within reach.
[2020-04-27 08:00] VITALS: BP 129/79
--- NOTE | 2020-04-27 08:14 | Pulmonology Progress Note ---
Subjective ROS Limited/Unobtainable: No Allergies: Coded Allergies: No Known Allergies (Unverified , 04/20/20) Objective Last 24 Hour Vital Signs Date Time Temp Pulse Resp B/P (MAP) Pulse Ox O2 Delivery O2 Flow Rate FiO2 04/27/20 04:00 98.4 80 17 141/64 (89) 92 04/26/20 21:00 Room Air 04/26/20 20:00 98.5 76 136/71 (92) 04/26/20 17:42 82 148/90 (109) 04/26/20 16:00 98.6 84 16 140/80 (100) 94 04/26/20 12:00 98.2 78 16 146/80 (102) 95 04/26/20 08:23 Room Air Intake and Output 04/26/20 04/27/20 19:00 07:00 Intake Total 1500 ml 600 ml Output Total 2500 ml Balance 1500 ml -1900 ml Intake Oral 1500 ml 600 ml Output Urine Total 2500 ml # Voids 8 7 Current Medications Medications (Trade) Dose Ordered Sig/Dao Route PRN Reason Start Time Stop Time Status Last Admin Dose Admin Acetaminophen (Tylenol) 650 mg Q4H PRN ORAL MILD Pain(1-3) & fever>101.4 04/20/20 21:30 05/20/20 21:29 04/22/20 16:42 Al Hydroxide/Mg Hydroxide (Mylanta) 30 ml Q4HR PRN ORAL GERD 04/20/20 21:30 05/20/20 21:29 Clonidine HCl (Catapres Tab) 0.1 mg Q4H PRN ORAL High Blood Pressure 04/26/20 17:00 07/25/20 16:59 Heparin Sodium (Porcine) (Heparin 5000 units/ml) 5,000 units EVERY 12 HOURS SUBQ 04/21/20 09:00 06/05/20 08:59 04/26/20 21:59 Ibuprofen (Motrin) 600 mg Q6H PRN ORAL For Pain 04/26/20 17:00 05/26/20 16:59 04/26/20 18:03 Pantoprazole (Protonix) 40 mg DAILY ORAL 04/21/20 09:00 05/21/20 08:59 04/26/20 08:29 Assessment/Plan Assessment/Plan Pulmonary Progress Note Subjective Allergies: Coded Allergies: No Known Allergies (Unverified , 04/20/20) Subjective no distress heme noted splung mass biopsy completed Objective Vital Signs noted Height (Feet): 5 Height (Inches): 10.00 Weight (Pounds): 230 Objective WDWN NAD clear breath sounds bilaterally without rhonchi or wheeze [id number] without MRG NABS nontender no HSM no CCE nonfocal Assessment/Plan Impression lung mass confirmed on CT leg edema seizure disorder fatigue/malaise hypertension acute renal failure COPD smoker elevated CK Plan onc noted CT guided biopsy done respiratory care dc hydration maintain meds PT dc to snf today off iv fluids impression, plan, and exam edited and reviewed in detail care discussed with RN Matthew Gaona MD Apr 27, 2020 08:14
[2020-04-27] MEDS: Heparin 5000 units/ml inj SUBQ SCH (09:08)
[2020-04-27 12:00] VITALS: BP 128/73
--- NOTE | 2020-04-27 12:00 | NUR ---
*-*DISCHARGE PLANNING*-* PATIENT HAS BEEN REFERRED TO: [facility] P: [phone] ROOM# 9.B [facility], WHO STATED, [place]ATING FOR [facility] TO GIVE APPROVAL FOR PATIENT TO GO TO ROOM#9.A.
--- NOTE | 2020-04-27 12:45 | NUR ---
SENIOR ECOLOGIST NOTE S/W NAVI AT [facility]. PER NAVI, THEY ARE CURRENTLY UNABLE TO ACCEPT ANY ADMISSIONS AT THIS TIME PER [facility]. DR STACIE ALBARRAN.
--- NOTE | 2020-04-27 12:52 | NUR ---
CASE MANAGEMENT:REVIEW SI;LUNG MASS. LE EDEMA. AC RENAL FAILURE. S/P GUIDED LUNG BIOPSY 04/24/20 98.5 86 17 141/64 92% ON RA IS;HEPARIN SQ Q12 PROTONIX PO QD MED SURG STATUS DCP;PATIENT REPORTS HOMELESSNESS REFERRED TO [facility] NO ADMISSIONS AT THIS TIME PER [facility] WILL CONTINUE WITH DC PLANNING
--- NOTE | 2020-04-27 13:05 | NUR ---
DISCHARGE PLANNING PATIENT HAS BEEN REFERRED TO [facility] ([facility]) P [phone] F [phone]
--- NOTE | 2020-04-27 13:25 | NUR ---
*-*DISCHARGE PLANNING*-* PATIENT HAS BEEN REFERRED TO: [facility] P: [phone] S/W [facility], cannot accept patient, currently on bed lock.
--- NOTE | 2020-04-27 14:36 | NUR ---
*-*DISCHARGE PLANNED*-* PATIENT HAS BEEN ACCEPTED AND WILL BE DISCHARGED TO [facility] ([facility]) P: [phone] FOR NURSE TO NURSE REPORT ROOM# 115.B [facility] SET FOR 4pm S/W VIOLET [id number]
[2020-04-27 16:00] VITALS: BP 142/73
--- NOTE | 2020-04-27 16:02 | NUR ---
NURSE NOTES: Called and gave report to Maverick at [facility].
--- NOTE | 2020-04-27 17:34 | Surgery Progress Note ---
Surgery Progress Note Subjective Symptoms: tolerating diet, passing flatus Additional Comments duplex negative no n/v labs stable Objective Last 24 Hour Vital Signs Date Time Temp Pulse Resp B/P (MAP) Pulse Ox O2 Delivery O2 Flow Rate FiO2 04/27/20 16:00 97.9 85 16 142/73 (96) 97 04/27/20 12:00 98.1 86 16 128/73 (91) 92 04/27/20 09:00 Room Air 04/27/20 08:00 98.2 79 16 129/79 (96) 95 04/27/20 04:00 98.4 80 17 141/64 (89) 92 04/26/20 21:00 Room Air 04/26/20 20:00 98.5 76 136/71 (92) 04/26/20 17:42 82 148/90 (109) I&O Intake and Output 04/26/20 04/27/20 19:00 07:00 Intake Total 1500 ml 600 ml Output Total 2500 ml Balance 1500 ml -1900 ml Intake Oral 1500 ml 600 ml Output Urine Total 2500 ml # Voids 8 7 Dressing: saturated Cardiovascular: RSR Respiratory: decreased breath sounds Abdomen: non-tender, present bowel sounds, non-distended Extremities: no edema, no tenderness, no cyanosis Plan Problems: (1) Rhabdomyolysis (2) Lung mass Assessment & Plan: pending CT Positive for 3.9 cm right upper lobe lung mass. This is concerning for neoplasm. Further evaluation with CT scan should be considered if this has not been worked up previously. In the posterolateral right lower lobe, there is a mass abutting the pleural surface which measures 3.8 x 3.6 cm orthogonal axial dimensions by 3.2 cm craniocaudad. This demonstrates slightly lobulated and slightly spiculated borders. There is some reticular opacity in the parenchyma surrounding this lesion. There are a few areas of centrilobular and anteroseptal emphysema in the upper lobes bilaterally. Bands of atelectasis and/or scarring are seen at the lung bases bilaterally. There is an area of groundglass opacity in the anteromedial right middle lobe. There are posterior dependent atelectatic changes on the left, and equivocally trace pleural fluid on the left. No right pleural effusion is demonstrated. There is some very faint hazy opacity in the periphery of the left upper lobe laterally at the level of the pulmonary hilum. The heart is upper limits normal in size. No pericardial effusion. There is a single prominent right paratracheal node which is round and measures approximately 16 mm in diameter. No definite mediastinal or hilar mass or adenopathy. Included thyroid is unremarkable. There is mild bilateral gynecomastia. No axillary or chest wall mass or adenopathy demonstrated. The bones demonstrate fractures of the anterolateral left fourth fifth and sixth ribs. Included upper bowel anatomy demonstrates cholelithiasis. The adrenals are unremarkable Impression: 3.8 x 3.6 x 3.2 cm right upper lobe mass, suspicious for primary pulmonary malignancy. Single prominent but not frankly enlarged paratracheal node, indeterminate for lymphadenopathy Acute appearing fractures of the left fourth fifth and sixth ribs. No evidence of pneumothorax Faint hazy opacity in the peripheral left upper lobe, nonspecific, could r epresent a small area of contusion related to the above Groundglass opacity in the anteromedial right middle lobe. This is nonspecific, could represent an area of active inflammation, chronic postinflammatory change, less likely neoplastic changes Basilar pulmonary atelectasis and scarring Bilateral upper lobe COPD changes Other findings as noted, including cholelithiasis, mild bilateral gynecomastia Prior imaging studies reviewed. Informed consent obtained prior to commencement of the procedure. Procedural timeout performed. Localizing spiral acquisitions obtained through the chest with the patient prone. Intended punct ure site sterilely prepped and draped. Local anesthesia with 1% lidocaine. A 17- gauge guide needle was directed to the periphery of the lesion, CT images confirmed satisfactory needle position. A coaxially inserted 18-gauge needle was then used to obtain 3 18-gauge core specimens. Follow-up images were obtained, demonstrating no evidence of pneumothorax or significant hemorrhage. Gas bubbles within the lesion indicated successful tissue sampling. Total dose length product 579 mGycm. CTDIvol(s) 9 x 6 mGy. Radiation dose was minimized using automated exposure control Comparison: Reference made to chest CT dated 04/21/2020 Findings: Interstitial images document guide needle placement at the periphery of the target lesion. Completion images demonstrate no evidence of pneumothorax or significant hemorrhage Impression: Apparently successful biopsy of right upper lobe lung mass, as described. Final pathology pending (3) Myalgia (4) Pain (5) Myositis (6) Bruising of penis Assessment & Plan: 64-year-old male identified to have bruising of the abdomen penis pelvis and blistering around his thighs hip. Patient states incontinence and unfortunately at times unable to get changed or care. Patient seems fairly unkept and has limited ability to provide history as he is a poor historian. Currently denies nausea vomiting or pain. Is unaware of the bruising on his abdomen unsure how you receive them. Patient noted to have bruising around his lower abdomen flank and open blisters around his pubic and penis area. In his thigh he has a unopened blister. Some erythema. Mainly consistent with an con associated dermatitis. No abscess. Labs noted. Lung CT as above. No acute surgical invention at this time Local wound care initiated. Recommended for patient to shower but patient states he is unable to walk currently. Will have physical therapy work with patient to help with ambulation. Once able to ambulate recommend shower. In the meantime discussed with nursing staff will plan to wash with cough washcloth and Hibiclens. Apply Thera honey or silver microbial to lesion around the pubis and penis. Optifoam to blister. Activity as tolerated. Diet as tolerated. Will follow with recommendations. Thank you participate in patient's care (7) AXEL (acute kidney injury) Feliz Woody Apr 27, 2020 17:34
--- NOTE | 2020-04-27 18:45 | NUR ---
NURSE NOTES: Patient discharged via BLS ambulance. IV and ID band removed. Belongings sent with patient. WCP taken and uploaded.
--- NOTE | 2020-04-28 15:13 | Discharge Summary ---
Discharge Summary Discharge Summary _ Date of admission: 04/20/2020 Date of discharge: 04/27/[address] Leyva History of Present Illness and Brief Hospital Course Mr. Pan is a 64-year-old male with past medical history of seizure disorder on Keppra, hypertension, CHF, brain cancer in remission, history of smoking, who was brought in by EMS for evaluation of fatigue and myalgias. Patient reported nonradiating soreness in his arms and legs, along with mild shortness of breath. Patient reported compliance with his medications including but not limited to furosemide, Keppra, potassium supplements. EKG was nonischemic. Chest x-ray showed no infiltrate. However a 3.9 cm right upper lobe lung mass was found, which was concerning for neoplasm and further evaluation with CT scan was considered. Patient received IV fluids and was admitted to the hospital for further work-up. With elevated BUN, creatinine, and creatinine kinase, renal evaluation in cluding renal ultrasound was performed. Renal ultrasound was essentially unremarkable and did not show hydronephrosis. As such, more hydration via IV fluids was provided. A follow-up CT of chest without contrast was performed which revealed 3.8 x 3.6 x 3.2 cm right upper lobe mass, suspicious for primary pulmonary malignancy. Other findings included single prominent but not enlarged paratracheal node, indeterminate for lymphadenopathy; acute appearing fractures of the left fourth, fifth and sixth ribs without evidence of pneumothorax; faint hazy opacity in the peripheral left upper lobe; groundglass opacity in the anteromedial right middle lobe, nonspecific, which could represent an area of active inflammation, chronic postinflammatory change; bilateral pulmonary atelectasis and scarring; bilateral upper lobe COPD changes; cholelithiasis; mild bilateral gynecomastia. With the lung mass confirmed on CT, CT-guided biopsy was performed. Pathology result pending at this point. A decision was made to discharge patient to SNF with oncology follow-up once biopsy result is available. Patient agreed. He was seen by physical therapy; patient required modification and maximum assistance with bed mobility. Patient was unable to stand at the time of PT evaluation. Patient was recommended to be discharged to SNF for continued rehab once medically cleared by MD. Patient was discharged to [facility]. Consultants: Surgery Dr. Woody Hematology oncology Dr. Kimble Pulmonology Dr. Gaona Discharge Condition Not in acute distress Discharge diet No added sodium Discharge Activity Needs assistance with mobility Final diagnoses Lung mass Anemia, likely of chronic disease Fatigue/malaise Seizure disorder Hypertension Acute renal failure COPD Elevated CK I have been assigned to dictate discharge summary for this account. I was not involved in the patient's management Nahid Miles Apr 28, 2020 15:13
== END 2020-04-27 19:28 | DRG 181 ==
LOC: EDBD 11:50 → EMR 12:17 → 3E 14:50 → EDBEDREQ 16:49
PROC: 0BBC3ZX Excision of Right Upper Lung Lobe, Percutaneous Approach, Diagnostic (ICD-10-PCS; principal; 2020-04-25)
DX: C34.11 Malignant neoplasm of upper lobe, right bronchus or lung (principal); M62.82 Rhabdomyolysis; N17.9 Acute kidney failure, unspecified; J44.9 Chronic obstructive pulmonary disease, unspecified; G40.909 Epilepsy, unspecified, not intractable, without status epilepticus; I11.0 Hypertensive heart disease with heart failure; I50.9 Heart failure, unspecified; Z85.841 Personal history of malignant neoplasm of brain; Z87.891 Personal history of nicotine dependence; D63.8 Anemia in other chronic diseases classified elsewhere; R53.83 Other fatigue; S30.21XA Contusion of penis, initial encounter; S30.1XXA Contusion of abdominal wall, initial encounter; S30.0XXA Contusion of lower back and pelvis, initial encounter; X58.XXXA Exposure to other specified factors, initial encounter; R60.0 Localized edema
CPT/HCPCS: 36415; 71045; 71250; 76770; 77012; 80048; 80053; 80307; 81003; 82378; 82550; 83880; 84484; 85025; 85610; 85651; 86140; 87081; 93005; 93970; 96360; 96361; 99285; G0480; J7030; U0002